=== PATIENT | female | born 1965 | race Caucasian/White ===

== ENCOUNTER 2024-06-12 11:25 | Outpatient (AMB) | payer BC, SELFPAY ==
--- NOTE | 2024-06-12 11:27 | HO.NEPHOV_ITS ---
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 Accompanied by: Self / Same As Patient Allergies No Known Allergies Allergy (Verified 06/12/24 11:31) Medication List - Last Reconciled 06/12/24 by James Ansari MD atorvastatin 20 mg PO DAILY bupropion HCl XL 150 mg PO DAILY celecoxib 200 mg PO DAILY citalopram 40 mg PO DAILY estradiol 1 mg PO DAILY gabapentin mg PO BID losartan 25 mg PO DAILY metoprolol succinate ER 25 mg PO DAILY nortriptyline 10 mg PO BID progesterone micronized 200 mg PO BEDTIME spironolactone 50 mg PO DAILY tizanidine 4 mg PO TID tizanidine 2 mg PO TID HPI Comments Details: Anabel churchill 58-year-old woman with a history of hypertension for almost 5 years. She has been on spironolactone 50 mg, metoprolol 25 mg, losartan 25 mg once a day. There has been fluctuations in her blood pressure. Apparently she has been on spironolactone for a longer period of time and this was initially prescribed for the treatment of acne. She had Holter monitoring done few years ago and metoprolol was started after the Holter monitoring. Against this background about a month ago she developed diarrhea and p.o. intake was poor. She developed acute kidney injury. While this episode happened she was on above medications along with Celebrex 200 mg once a day. She has been on Celebrex for several years and prior to that she was on several other NSAIDs for osteoarthritis. Once the episode of diarrhea resolved serum creatinine decreased from 2.0 down to 1.35 over the last several weeks. She has not changed any of her medications despite the advice of discontinuing Celebrex from her PCP. Other ongoing medical problems significant for multiple sclerosis. This is in remission. She follows with neurologist. She has a history of depression. She is on both Wellbutrin and citalopram 40 mg a day. She has been on this for a long time History of significant osteoarthritis she has been on NSAIDs for a long time. 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 History of neuropathy. She is on gabapentin 600 mg b.i.d. along with the nortriptyline. Again she has been on this for several years. She has 3 siblings no history of hypertension. Grandmother had end stage renal disease. No history of smoking cigarettes or alcohol abuse. She uses marijuana She is not on a salt restricted diet. In fact she uses plenty of pickle and sometimes drinks pickle juice Review of Systems Const Denies fever(s) and Denies weight loss Card Denies chest pain Resp Denies cough and Denies hemoptysis GI Denies abdominal pain, Denies diarrhea and Denies nausea Musc Denies back pain Neuro Denies focal weakness Physical Exam Vital Signs: Last Vital Signs Pulse 91 06/12/24 11:28 BP 140/98 H 06/12/24 11:28 Pulse Ox 95 06/12/24 11:28 Oxygen Delivery Method Room Air 06/12/24 11:28 BMI result Body Mass Index 33.8 Const General: comfortable; No acute distress Orientation/consciousness: patient oriented x3 Eyes General: appearance normal, both eyes and all related structures Visual Calix: normal visual calix by confrontation Neck Neck: Yes supple and Yes no JVD Resp Effort & Inspection: normal respiratory effort and respiratory effort not decreased Auscultation: rhonchi Cardio Palpation: no palpable S3 and no palpable S4 Heart sounds: no rubs GI Inspection: Yes normal to inspection Palpation (GI): Soft to palpation Percussion: Yes normal to percussion Auscultation: normal bowel sounds General: Yes no CVA tenderness Back/Spine/Pelvis Back: no CVA tenderness Skin General skin exam: no petechiae and no purpura Neuro General: patient oriented x3 and no focal motor deficits Extrem General: No clubbing and No edema Results Reviewed Results Reviewed: All labs labs reviewed. As of June 11 serum creatinine 1.35 serum electrolytes normal. All prior labs were reviewed Peak serum creatinine was 2.04 on May 14 Nephrology Results: No Data to Display Assessment & Plan Assessment & Plan (1) CKD (chronic kidney disease): Code(s): N18.9 - Chronic kidney disease, unspecified Category: Medical (2) HTN (hypertension): Code(s): I10 - Essential (primary) hypertension Category: Medical (3) Multiple sclerosis: Code(s): G35 - Multiple sclerosis Category: Medical (4) Osteoarthritis: Code(s): M19.90 - Unspecified osteoarthritis, unspecified site Category: Medical (5) Neuropathy: Code(s): G62.9 - Polyneuropathy, unspecified Category: Medical (6) History of depression: Code(s): Z86.59 - Personal history of other mental and behavioral disorders Category: Medical Plan 58-year-old woman with a history of hypertension has sustained acute kidney injury. Acute kidney injury is most likely due to hypoperfusion from the combination of losartan, spironolactone and Celebrex. She developed diarrhea leading to dehydration which could be the precipitating event. Once diarrhea resolved and her volume status has been optimized renal function is gradually improving. She probably has underlying chronic kidney disease and baseline is yet to be determined. Ideally she should not be on a combination of losartan spironolactone and Celebrex. This combination certainly could lead to hypoperfusion. Upon discussing with her she does not want to stop Celebrex due to the severity of osteoarthritis. Next best option would be to taper spironolactone. Other possibility would be to discontinue losartan. She is open to suggestion. Other possibilities including underlying obstructive uropathy, glomerular nephritis or interstitial disease seem unlikely but nevertheless we will rule that out. Overall she is on multiple medications and we should be able to taper and discontinue some of her medications. I have discussed this with her. Over the course of several weeks I will gradually taper gabapentin, nortriptyline, citalopram and Wellbutrin. We will taper 1 medication at a time. Recommendations Stay on low-sodium diet. Encouraged her to avoid pickle and pickle juice Decrease spironolactone by 50% down to 25 mg a day. Watch blood pressure over the next several weeks. If needed I will obtain a 24 hour ambulatory blood pressure monitoring which will guide us in altering her antihypertensive regimen. Taper and discontinue Celebrex if possible or use as needed. Encouraged her to increase p.o. fluid intake. Renal ultrasonogram to check renal echogenicity and to rule out hydronephrosis Routine urine studies including urine protein creatinine ratio. Repeat blood work ordered over the next 2 weeks to follow up on serum creatinine. Returned to the office after baseline workup is completed. Orders: Orders UA and rflx microscopic Today N18.9 - Chronic kidney disease, unspecified Comprehensive Met. Panel 2 Weeks N18.9 - Chronic kidney disease, unspecified renal BI Today N18.9 - Chronic kidney disease, unspecified Total Protein Urine Random Today N18.9 - Chronic kidney disease, unspecified Creatinine Urine Today N18.9 - Chronic kidney disease, unspecified Coding Level of Care Code New Pt Level 5 (63783) Diagnoses CKD (chronic kidney disease) N18.9 HTN (hypertension) I10 Multiple sclerosis G35 Osteoarthritis M19.90 Neuropathy G62.9 History of depression Z86.59
[2024-06-12 11:28] VITALS: BP 140/98; PULSE 91; O2SAT 95; BMI 33.8
[2024-06-12 12:07] VITALS: BP 150/90
== END 2024-06-12 12:06 | disposition home or self-care (01) ==
PROVIDERS: Visit Provider Internal Medicine Hypertension Specialist
DX: I12.9 Hypertensive chronic kidney disease with stage 1 through stage 4 chronic kidney disease, or unspecified chronic kidney disease (principal); N18.9 Chronic kidney disease, unspecified; G35 Multiple sclerosis; M19.90 Unspecified osteoarthritis, unspecified site; G62.9 Polyneuropathy, unspecified; Z86.59 Personal history of other mental and behavioral disorders
CPT/HCPCS: 99204

== ENCOUNTER → 2024-06-12 11:25 | Outpatient (BNVA) | payer BC, SELFPAY | PROVIDERS: Visit Provider Internal Medicine Hypertension Specialist ==

== ENCOUNTER 2024-06-12 12:11 | Outpatient (REF) | payer BC, SELFPAY ==
[2024-06-12 17:59] LABS: Appearance Urine Clear; Color Urine Yellow; Glucose Urine UA Negative (Negative); Leukocyte Esterase Urine Negative (Negative); Nitrite Urine Negative (Negative); PH 6.5 (5.0-9.0); Specific Gravity - Urine 1.015 (1.005-1.025); Urine Blood Negative (Negative); Urine Ketones Negative (Negative); Urine Protein Negative (Neg-Trace)
[2024-06-12 18:43] LABS: Total Protein Urine Random < 7 mg/dL (<12)
== END 2024-06-12 12:12 | disposition home or self-care (01) ==
LOC: HO.HKASLDS 12:11
PROVIDERS: Visit Provider Internal Medicine Hypertension Specialist
DX: N18.9 Chronic kidney disease, unspecified (principal)
CPT/HCPCS: 81003; 82570; 84156

== ENCOUNTER 2024-06-20 09:55 | Outpatient (REF) | payer BC, SELFPAY ==
--- NOTE | ~2024-06-20 | US_ITS ---
EXAMINATION: US RETROPERITONEAL LIMITED (RENAL ONLY) CLINICAL INFORMATION: Chronic kidney disease, unspecified. COMPARISON: None available. TECHNIQUE: Real-time imaging of the kidneys. Limited visualization due to bowel gas. FINDINGS: RIGHT KIDNEY: 10.0 x 4.2 x 4.6 cm (SAG x AP x TRV). No hydronephrosis. 0.5 cm midpole calculus. Renal cortical thickness is normal. Limited visualization. LEFT KIDNEY: 8.6 x 5.3 x 4.0 cm (SAG x AP x TRV). 0.7 cm upper pole calculus. No hydronephrosis. Renal cortical thickness is normal. Limited visualization. US/US renal BI IMPRESSION: Bilateral nonobstructive renal calculi. No hydronephrosis.
== END 2024-06-20 09:56 | disposition home or self-care (01) ==
LOC: HO.US 09:55
PROVIDERS: PCP Internal Medicine; Visit Provider Internal Medicine Hypertension Specialist
DX: N18.9 Chronic kidney disease, unspecified (principal)
CPT/HCPCS: 76775

== ENCOUNTER 2024-07-24 09:04 | Outpatient (AMB) | payer BC, SELFPAY ==
--- NOTE | 2024-07-24 09:02 | HO.NEPHOV_ITS ---
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 Accompanied by: Self / Same As Patient Allergies No Known Allergies Allergy (Verified 07/24/24 09:15) Medication List - Last Reconciled 07/24/24 by James Ansari MD atorvastatin 20 mg PO DAILY bupropion HCl XL 150 mg PO DAILY celecoxib 200 mg PO DAILY citalopram 40 mg PO DAILY estradiol 1 mg PO DAILY gabapentin mg PO DAILY losartan 25 mg PO DAILY metoprolol succinate ER 25 mg PO DAILY nortriptyline 10 mg PO DAILY progesterone micronized 200 mg PO BEDTIME spironolactone 25 mg PO DAILY tizanidine 4 mg PO TID tizanidine 2 mg PO TID HPI Comments Details: Anabel churchill 58-year-old woman with a history of hypertension for almost 5 years. She has been on spironolactone 50 mg, metoprolol 25 mg, losartan 25 mg once a day. There has been fluctuations in her blood pressure. Apparently she has been on spironolactone for a longer period of time and this was initially prescribed for the treatment of acne. She had Holter monitoring done few years ago and metoprolol was started after the Holter monitoring. Against this background about a month ago she developed diarrhea and p.o. intake was poor. She developed acute kidney injury. While this episode happened she was on above medications along with Celebrex 200 mg once a day. She has been on Celebrex for several years and prior to that she was on several other NSAIDs for osteoarthritis. Once the episode of diarrhea resolved serum creatinine decreased from 2.0 down to 1.35 over the last several weeks. She has not changed any of her medications despite the advice of discontinuing Celebrex from her PCP. Other ongoing medical problems significant for multiple sclerosis. This is in remission. She follows with neurologist. She has a history of depression. She is on both Wellbutrin and citalopram 40 mg a day. She has been on this for a long time History of significant osteoarthritis she has been on NSAIDs for a long time. 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 History of neuropathy. She is on gabapentin 600 mg b.i.d. along with the nortriptyline. Again she has been on this for several years. She has 3 siblings no history of hypertension. Grandmother had end stage renal disease. No history of smoking cigarettes or alcohol abuse. She uses marijuana She is not on a salt restricted diet. In fact she uses plenty of pickle and sometimes drinks pickle juice 07/24/24 She has cut back on Aldactone Still on Celebrex 200 mg Physical Exam Vital Signs: Last Vital Signs Pulse 70 07/24/24 09:13 BP 144/88 H 07/24/24 09:13 Pulse Ox 98 07/24/24 09:13 Oxygen Delivery Method Room Air 07/24/24 09:13 BMI result Body Mass Index 34.3 Const General: comfortable; No acute distress Orientation/consciousness: patient oriented x3 Eyes General: appearance normal, both eyes and all related structures Visual Calix: normal visual calix by confrontation Neck Neck: Yes supple and Yes no JVD Resp Effort & Inspection: normal respiratory effort and respiratory effort not decreased Auscultation: rhonchi Cardio Palpation: no palpable S3 and no palpable S4 Heart sounds: no rubs GI Inspection: Yes normal to inspection Palpation (GI): Soft to palpation Percussion: Yes normal to percussion Auscultation: normal bowel sounds General: Yes no CVA tenderness Back/Spine/Pelvis Back: no CVA tenderness Skin General skin exam: no petechiae and no purpura Neuro General: patient oriented x3 and no focal motor deficits Extrem General: No clubbing and No edema Results Reviewed Nephrology Results: Urine Protein Negative mg/dL (Neg-Trace) 06/12/24 Urine Creatinine 52.90 mg/dL 06/12/24 Renal US 06/20/24 Assessment & Plan Assessment & Plan (1) CKD (chronic kidney disease): Code(s): N18.9 - Chronic kidney disease, unspecified Category: Medical (2) HTN (hypertension): Code(s): I10 - Essential (primary) hypertension Category: Medical (3) Multiple sclerosis: Code(s): G35 - Multiple sclerosis Category: Medical (4) Osteoarthritis: Code(s): M19.90 - Unspecified osteoarthritis, unspecified site Category: Medical (5) Neuropathy: Code(s): G62.9 - Polyneuropathy, unspecified Category: Medical (6) History of depression: Code(s): Z86.59 - Personal history of other mental and behavioral disorders Category: Medical Plan 58-year-old woman with a history of hypertension has sustained acute kidney injury. Acute kidney injury is most likely due to hypoperfusion from the combination of losartan, spironolactone and Celebrex. She developed diarrhea leading to dehydration which could be the precipitating event. Once diarrhea resolved and her volume status has been optimized renal function is gradually improving. She probably has underlying chronic kidney disease and baseline is yet to be determined. Ideally she should not be on a combination of losartan spironolactone and Celebrex. This combination certainly could lead to hypoperfusion. Upon discussing with her she does not want to stop Celebrex due to the severity of osteoarthritis. Creatiinine is up to 2.4 - Due to hypoperfusion ; USG - no obstruction She is should cut back on Celebrex! Taper spironolactone. Other possibility would be to discontinue losartan. No evidence of glomerular nephritis or interstitial disease based on UA Overall she is on multiple medications and we should be able to taper and discontinue some of her medications. I have discussed this with her. Over the course of several weeks I will gradually taper gabapentin, nortriptyline, citalopram and Wellbutrin. Recommendations Stay on low-sodium diet. Encouraged her to avoid pickle and pickle juice spironolactone keep at 25 mg a day. Watch blood pressure . discontinue Celebrex if possible or use as needed. Encouraged her to increase p.o. fluid intake. Repeat blood work ordered over the next 2 weeks to follow up on serum creatinine. Orders: Orders Basic Metabolic Panel 6 Weeks N18.9 - Chronic kidney disease, unspecified Medications: Changed From celecoxib 200 mg PO DAILY To celecoxib 200 mg PO .qod Coding Level of Care Code Est Pt Level 4 (93086) Diagnoses CKD (chronic kidney disease) N18.9 HTN (hypertension) I10 Multiple sclerosis G35 Osteoarthritis M19.90 Neuropathy G62.9 History of depression Z86.59
[2024-07-24 09:13] VITALS: BP 144/88; PULSE 70; O2SAT 98; BMI 34.3
== END 2024-07-24 09:34 | disposition home or self-care (01) ==
PROVIDERS: Visit Provider Internal Medicine Hypertension Specialist
DX: I12.9 Hypertensive chronic kidney disease with stage 1 through stage 4 chronic kidney disease, or unspecified chronic kidney disease (principal); N18.9 Chronic kidney disease, unspecified; G35 Multiple sclerosis; M19.90 Unspecified osteoarthritis, unspecified site; G62.9 Polyneuropathy, unspecified; Z86.59 Personal history of other mental and behavioral disorders
CPT/HCPCS: 99214

== ENCOUNTER → 2024-07-24 09:04 | Outpatient (BNVA) | payer BC, SELFPAY | PROVIDERS: Visit Provider Internal Medicine Hypertension Specialist ==

== ENCOUNTER 2024-09-04 09:22 | Outpatient (AMB) | payer BC, SELFPAY ==
[2024-09-04 09:23] VITALS: BP 124/80; PULSE 77; O2SAT 96; BMI 33.7
--- NOTE | 2024-09-04 09:23 | HO.NEPHOV_ITS ---
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 Accompanied by: Spouse Allergies No Known Allergies Allergy (Verified 09/04/24 09:25) Medication List - Last Reconciled 09/04/24 by Stormy Ayala, DNP, GAME DESIGN INSTRUCTOR-BC atorvastatin 20 mg PO DAILY bupropion HCl XL 150 mg PO DAILY citalopram 40 mg PO DAILY estradiol 1 mg PO DAILY losartan 25 mg PO DAILY metoprolol succinate ER 25 mg PO DAILY modafinil 200 mg PO BID nortriptyline 10 mg PO DAILY progesterone micronized 200 mg PO BEDTIME spironolactone 25 mg PO DAILY tizanidine 4 mg PO TID tizanidine 2 mg PO TID HPI Comments Details: Anabel churchill 58-year-old woman with a history of hypertension for almost 5 years. In May 2024 she had an MADHAVI with rise in creatinine to 2.04 in the setting of diarrhea while taking losartan, spironolactone and celebrex (for arthritis). Her creatinine improved several weeks later after diarrhea resolved to 1.35, but continued to take celebrex until Jul 2024. she had been on NSAIDs for many years for osteoarthritis until recently. other medical history includes osteoarthritis, multiple sclerosis (in remission), neuropathy (on gabapentin and nortriptyline for years), depression. She has been taking metoprolol for a few years now after having a holter monitor done per her report. She has 3 siblings no history of hypertension. Grandmother had end stage renal disease. No history of smoking cigarettes or alcohol abuse. She uses marijuana She previously drank pickle juice and added lots of salt to her diet. Over the last few weeks she has been minimizing salt and avoiding pickle juice. She is taking losartan 25mg daily, metoprolol 25mg daily and spironolactone 25mg daily for blood pressure control. Today she states she is feeling well, other than her knee pain which has worsened since discontinuing celebrex. She is working on reducing salt though still adds salt to food when she cooks (just avoids adding more table salt at the table when she eats). She states her diet is not particularly healthy, reports she is [place] and loves the carbohydrates she eats frequently. She has not been able to exercise recently due to knee pain. She denies other new symptoms/concerns. Review of Systems Const Denies fatigue, Denies headache(s), Denies lethargy and Denies malaise ENT Denies headache(s) Card Denies chest pain, Denies lightheadedness, Denies dyspnea and Denies dyspnea on exertion Resp Denies dyspnea and Denies dyspnea on exertion GI Denies abdominal pain Denies hematuria, Denies difficulty voiding, Denies dysuria and Denies flank pain Musc Reports arthralgias (knees- osteoarthritis) Skin/Breast Denies rash Neuro Denies headache(s) Endo Denies fatigue Physical Exam Vital Signs: Last Vital Signs Pulse 77 09/04/24 09:23 Pulse Ox 96 09/04/24 09:23 Oxygen Delivery Method Room Air 09/04/24 09:23 BMI result Body Mass Index 33.7 Const General: healthy appearing, comfortable, no acute distress and alert Neck Neck: Yes no JVD Resp Effort & Inspection: normal respiratory effort Auscultation: clear to auscultation bilaterally Cardio Jugular venous distension: no JVD Rate: regular rate Rhythm: regular rhythm Heart sounds: S1 normal heart sound present and S2 normal heart sound present GI Palpation (GI): Soft to palpation and nontender General: Yes no CVA tenderness Back/Spine/Pelvis Back: no CVA tenderness Skin Rashes: no rashes Neuro General: moves all extremities Extrem General: No edema Results Reviewed Nephrology Results: Urine Protein Negative mg/dL (Neg-Trace) 06/12/24 Urine Creatinine 52.90 mg/dL 06/12/24 Renal US 06/20/24 Assessment & Plan Assessment & Plan (1) CKD (chronic kidney disease): Code(s): N18.9 - Chronic kidney disease, unspecified Category: Medical Qualifiers: Chronic kidney disease stage: stage 3 (moderate) Chronic kidney disease stage 3 subtype: stage 3b (GFR 30-44) Qualified Code(s): N18.32 - Chronic kidney disease, stage 3b (2) HTN (hypertension): Code(s): I10 - Essential (primary) hypertension Category: Medical Qualifiers: Hypertension type: primary hypertension Qualified Code(s): I10 - Essential (primary) hypertension (3) Multiple sclerosis: Code(s): G35 - Multiple sclerosis Category: Medical (4) Osteoarthritis: Code(s): M19.90 - Unspecified osteoarthritis, unspecified site Category: Medical Qualifiers: Osteoarthritis location: knee Osteoarthritis type: unspecified Laterality: unspecified laterality Qualified Code(s): M17.9 - Osteoarthritis of knee, unspecified (5) Neuropathy: Code(s): G62.9 - Polyneuropathy, unspecified Category: Medical (6) History of depression: Code(s): Z86.59 - Personal history of other mental and behavioral disorders Category: Medical Plan 58 year old women with a history of hypertension, sustained acute kidney injury from hypoperfusion. No evidence of GN or interstitial disease -UA bland. No obstruction. renal function has stabilized, likely new baseline. 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 Long discussion regarding importance of continuing to reduce salt intake- discussed avoiding adding salt to food while cooking whill be important for her kidney health and blood pressure. Discussed importance of weight loss for renal and overall health. Discussed importance of hydrating well, particularly while on her current medication regimen. She will continue to avoid NSAIDs. She will return in 2-3 months for follow up and work on recommendations above in the meant time. She will get blood work prior to next appt. Orders: Orders Basic Metabolic Panel 3 Months I10 - Essential (primary) hypertension, N18.30 - Chronic kidney disease, stage 3 unspecified, N18.9 - Chronic kidney disease, unspecified Coding Level of Care Code Est Pt Level 4 (21732) Diagnoses Stage 3b chronic kidney disease N18.32 Chronic kidney disease stage: stage 3 (moderate) Chronic kidney disease stage 3 subtype: stage 3b (GFR 30-44) Primary hypertension I10 Hypertension type: primary hypertension Multiple sclerosis G35 Osteoarthritis of knee, unspecified laterality, unspecified osteoarthritis type M17.9 Osteoarthritis location: knee Osteoarthritis type: unspecified Laterality: unspecified laterality Neuropathy G62.9 History of depression Z86.59
== END 2024-09-04 09:54 | disposition home or self-care (01) ==
PROVIDERS: PCP Internal Medicine; Visit Provider Internal Medicine Hypertension Specialist
DX: N18.32 Chronic kidney disease, stage 3b (principal); I10 Essential (primary) hypertension; G35 Multiple sclerosis; M17.9 Osteoarthritis of knee, unspecified; G62.9 Polyneuropathy, unspecified; Z86.59 Personal history of other mental and behavioral disorders
CPT/HCPCS: 99214

== ENCOUNTER → 2024-09-04 09:22 | Outpatient (BNVA) | payer BC, SELFPAY | PROVIDERS: PCP Internal Medicine; Visit Provider Internal Medicine Hypertension Specialist | DX: N18.9 Chronic kidney disease, unspecified (principal); I10 Essential (primary) hypertension; G35 Multiple sclerosis; M19.90 Unspecified osteoarthritis, unspecified site; G62.9 Polyneuropathy, unspecified; Z86.59 Personal history of other mental and behavioral disorders ==

== ENCOUNTER 2024-12-04 09:13 | Outpatient (AMB) | payer BC, SELFPAY ==
[2024-12-04 09:19] VITALS: BP 68/50; BMI 34.0
--- NOTE | 2024-12-04 09:19 | HO.NEPHOV ---
Vital Signs 12/04/24 09:19 Height 5 ft 7 in Weight 217 lb BMI 34.0 BP 68/50 L Blood Pressure Location Lt brachial Position Sitting Intake Visit Reasons: 3mon follow up/ LVM Clinical Data Research Required: No Accompanied by: Self / Same As Patient Allergies No Known Allergies Allergy (Verified 12/04/24 09:21) Medication List - Last Reconciled 12/04/24 by James Ansari MD atorvastatin 20 mg PO DAILY bupropion HCl XL 150 mg PO DAILY citalopram 40 mg PO DAILY estradiol 1 mg PO DAILY losartan 25 mg PO DAILY metoprolol succinate ER 25 mg PO DAILY modafinil 200 mg PO BID nortriptyline 10 mg PO DAILY progesterone micronized 200 mg PO BEDTIME tizanidine 4 mg PO TID tizanidine 2 mg PO TID HPI Comments Details: Anabel churchill 58-year-old woman with a history of hypertension for almost 5 years. She has been on spironolactone 50 mg, metoprolol 25 mg, losartan 25 mg once a day. There has been fluctuations in her blood pressure. Apparently she has been on spironolactone for a longer period of time and this was initially prescribed for the treatment of acne. She had Holter monitoring done few years ago and metoprolol was started after the Holter monitoring. Against this background about a month ago she developed diarrhea and p.o. intake was poor. She developed acute kidney injury. While this episode happened she was on above medications along with Celebrex 200 mg once a day. She has been on Celebrex for several years and prior to that she was on several other NSAIDs for osteoarthritis. Once the episode of diarrhea resolved serum creatinine decreased from 2.0 down to 1.35 over the last several weeks. She has not changed any of her medications despite the advice of discontinuing Celebrex from her PCP. Other ongoing medical problems significant for multiple sclerosis. This is in remission. She follows with neurologist. She has a history of depression. She is on both Wellbutrin and citalopram 40 mg a day. She has been on this for a long time History of significant osteoarthritis she has been on NSAIDs for a long time. 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 History of neuropathy. She is on gabapentin 600 mg b.i.d. along with the nortriptyline. Again she has been on this for several years. She has 3 siblings no history of hypertension. Grandmother had end stage renal disease. No history of smoking cigarettes or alcohol abuse. She uses marijuana She is not on a salt restricted diet. In fact she uses plenty of pickle and sometimes drinks pickle juice 07/24/24 She has cut back on Aldactone Still on Celebrex 200 mg 12/04/24 BP has been low Feels light headed Off NSAIDS Physical Exam Vital Signs: Last Vital Signs BP 68/50 L 12/04/24 09:19 BMI result Body Mass Index 34.0 Comfortable Neck supple no JVD. Lungs entry equal no rales. Heart S1-S2 heard no gallop or rub. Abdomen soft nontender. Neuro alert awake oriented. No asterixis. Extremities no edema. Results Reviewed Nephrology Results: Urine Protein Negative mg/dL (Neg-Trace) 06/12/24 Urine Creatinine 52.90 mg/dL 06/12/24 Renal US 06/20/24 Assessment & Plan Assessment & Plan (1) CKD (chronic kidney disease): Code(s): N18.9 - Chronic kidney disease, unspecified Category: Medical Qualifiers: Chronic kidney disease stage: stage 3 (moderate) Chronic kidney disease stage 3 subtype: stage 3b (GFR 30-44) Qualified Code(s): N18.32 - Chronic kidney disease, stage 3b (2) HTN (hypertension): Code(s): I10 - Essential (primary) hypertension Category: Medical Qualifiers: Hypertension type: primary hypertension Qualified Code(s): I10 - Essential (primary) hypertension (3) Multiple sclerosis: Code(s): G35 - Multiple sclerosis Category: Medical (4) Osteoarthritis: Code(s): M19.90 - Unspecified osteoarthritis, unspecified site Category: Medical Qualifiers: Laterality: unspecified laterality Osteoarthritis location: knee Osteoarthritis type: unspecified Qualified Code(s): M17.9 - Osteoarthritis of knee, unspecified (5) Neuropathy: Code(s): G62.9 - Polyneuropathy, unspecified Category: Medical (6) History of depression: Code(s): Z86.59 - Personal history of other mental and behavioral disorders Category: Medical Plan 58-year-old woman with a history of hypertension has sustained acute kidney injury. Acute kidney injury is most likely due to hypoperfusion from the combination of losartan, spironolactone and Celebrex. She developed diarrhea leading to dehydration which could be the precipitating event. Once diarrhea resolved and her volume status has been optimized renal function is gradually improving. She probably has underlying chronic kidney disease and baseline is yet to be determined. Ideally she should not be on a combination of losartan spironolactone and Celebrex. This combination certainly could lead to hypoperfusion. Upon discussing with her she does not want to stop Celebrex due to the severity of osteoarthritis. Creatiinine is up to 2.4 - Due to hypoperfusion ; USG - no obstruction She is should cut back on Celebrex! Taper spironolactone. Other possibility would be to discontinue losartan. No evidence of glomerular nephritis or interstitial disease based on UA Overall she is on multiple medications and we should be able to taper and discontinue some of her medications. I have discussed this with her. Over the course of several weeks I will gradually taper gabapentin, nortriptyline, citalopram and Wellbutrin. 12/04/24; BP is rather low Recommendations Stay on low-sodium diet. Encouraged her to avoid pickle and pickle juice STOP spironolactone 25 mg a day due to LOW BP Watch blood pressure . Continue to hold Celebrex Encouraged her to increase p.o. fluid intake. Orders: Orders Complete Blood Count no Diff 4 Months N18.32 - Chronic kidney disease, stage 3b Basic Metabolic Panel 4 Months N18.32 - Chronic kidney disease, stage 3b Coding Level of Care Code Est Pt Level 4 (13853) Diagnoses Stage 3b chronic kidney disease N18.32 Chronic kidney disease stage: stage 3 (moderate) Chronic kidney disease stage 3 subtype: stage 3b (GFR 30-44) Primary hypertension I10 Hypertension type: primary hypertension Multiple sclerosis G35 Osteoarthritis of knee, unspecified laterality, unspecified osteoarthritis type M17.9 Laterality: unspecified laterality Osteoarthritis location: knee Osteoarthritis type: unspecified Neuropathy G62.9 History of depression Z86.59
--- OUTSIDE RECORDS SUMMARY | 2024-12-04 09:40 | XMS_ITS | Clinical Summary ---
Author Organization [facility] Address [address] [place] [address] Care Team Providers Care Winch Driver Name Role Phone [email or web address] cuevas Primary Care Provider [phone] Allergies No known active allergies Medications Medication Sig Dispensed Refills Start Date End Date Status nortriptyline (PAMELOR) 10 MG capsule Take 2 capsules (20 mg total) by mouth every night at bedtime. 0 Active Levonorgest-Eth Estrad 0.15-0.03 &0.01 MG TABS Take by mouth daily. 0 Active buPROPion (WELLBUTRIN XL) 150 MG 24 hr tablet Take 1 tablet (150 mg total) by mouth daily. 0 Active citalopram (CeleXA) 40 MG tablet Take 1 tablet (40 mg total) by mouth daily. 0 Active tiZANidine (ZANAFLEX) 6 MG capsule Take 1 capsule (6 mg total) by mouth 3 (three) times a day. 0 Active celecoxib (CeleBREX) 200 MG capsule Take 1 capsule (200 mg total) by mouth daily. 0 Active gabapentin (NEURONTIN) 600 MG tablet Take 1 tablet (600 mg total) by mouth 2 (two) times a day. 0 Active estradiol (ESTRACE) 1 MG tablet estradiol 1 mg tablet TAKE 1 TABLET BY MOUTH EVERY DAY 0 Active finasteride (PROSCAR) 5 MG tablet Take 0.5 tablets (2.5 mg total) by mouth daily. 0 05/28/2020 Active progesterone (PROMETRIUM) capsule 200 mg TAKE 1 CAPSULE BY MOUTH EVERYDAY AT BEDTIME 0 03/26/2020 Active atorvastatin (LIPITOR) tablet 20 mg Take 1 tablet (20 mg total) by mouth daily. for 30 days 0 04/18/2023 Active modafinil (PROVIGIL) 200 MG tablet TAKE 1 TABLET BY MOUTH UP TO TWICE DAILY 180 tablet 5 04/04/2024 Active Active Problems Problem Noted Date Diagnosed Date HTN (hypertension) 06/12/2020 Depression 06/12/2020 Family History Medical History Relation Name Comments Multiple sclerosis Great Aunt 1 mat great maternal aun t Multiple sclerosis Great Aunt 2 maternal great pat. au nt Hypertension Mother Relation Name Status Comments Great Aunt 1 mat great maternal aunt Great Aunt 2 maternal great pat. aunt Mother Social History Tobacco Use Types Packs/Day Years Used Date Smoking Tobacco: Former Cigarettes Q uit: 1999 Smokeless Tobacco: Never Tobacco Cessation:Counseling Given: Not Answered Alcohol Use Standard Drinks/Week Comments Yes 0 (1 standard drink = 0.6 oz pur e alcohol) Sex and Gender Information Value Date Recorded Sex Assigned at Female 02/23/2021 10:42 AM EDT Gender Identity Not on file Sexual Orientation Not on file Job Start Date Occupation Industry Not on file Not on file Not on file Last Filed Vital Signs Vital Sign Reading Time Taken Comments Blood Pressure 96/64 06/03/2024 9:23 AM EDT Pulse 69 06/03/2024 9:23 AM EDT Temperature 36.2 ??C (97.2 ??F) 06/03/2024 9:23 AM ED T Respiratory Rate 18 11/29/2023 11:2 7 AM EST Oxygen Saturation 95% 06/03/2024 9:23 AM EDT Inhaled Oxygen Concentration - - Weight 97.9 kg (215 lb 12.8 oz) 06/03/2024 9:23 AM EDT Height 170.2 cm (5' 7 ) 06/03/2024 9:23 AM EDT Body Mass Index 33.8 06/03/2024 9:23 AM EDT Plan of Treatment Health Maintenance Due Date Last Done Comments Hepatitis B Vaccines (1 of 3 - 3-dose series) 1965 Hepatitis C Screening 1965 COVID-19 Vaccine (#1) 04/17/1966 Depression Screening 1977 BMI Counseling 1983 Preventative Health Evaluation 1983 Cervical Cancer Screening (Pap Smear) 1986 Colon Cancer Screening (Colonoscopy) 2010 Breast Cancer Screening (Mammogram) 2015 Shingrix-Zoster Vaccine (1 o f 2) 2015 DTap / Tdap / Td (2 - Td or Tdap) 11/30/2022 11/30/2012 Influenza Vaccine (#1) 2024 , 09/24/2020, 08/13/2019 Pneumococcal Vaccine Aged Out No long er eligible based on patient's age to complete this topic RSV Ped < 20 months Aged Out No longe r eligible based on patient's age to complete this topic Care Teams Winch Driver Relationship Specialty Start Date End Date Wiliam Ching DO [address] [place] [address] [address] [place] [address] PCP - General Internal Medicine 09/14/18
--- OUTSIDE RECORDS SUMMARY | 2024-12-04 09:40 | XMS_ITS | Clinical Summary ---
Author Organization 175 [facility] Address [address] [place] [address] Phone Care Team Providers Care Flame Brazing Machine Operator Name Role Phone Wiliam Maravilla DO Primary Care Provider [phone] Allergies No known active allergies Medications Medication Sig Dispensed Refills Start Date End Date Status amLODIPine (NORVASC) 5 mg tablet Take 2 tablets (10 mg total) by mouth 1 (one) time each day. Active atorvastatin (LIPITOR) 20 mg tablet Take 1 tablet (20 mg total) by mouth 1 (one) time each day. 04/18/2023 Active buPROPion XL (WELLBUTRIN XL) 150 mg 24 hr tablet Take 1 tablet (150 mg total) by mouth. Active celecoxib (CeleBREX) 200 mg capsule Take 1 capsule (200 mg total) by mouth 1 (one) time each day. Active citalopram (CeleXA) 40 mg tablet Take 1 tablet (40 mg total) by mouth 1 (one) time each day. Active estradioL (ESTRACE) 1 mg tablet estradiol 1 mg tablet TAKE 1 TABLET BY MOUTH EVERY DAY Active finasteride (PROSCAR) 5 mg tablet Take 2.5 mg by mouth. 05/28/2020 Active gabapentin (NEURONTIN) 600 mg tablet Take 1 tablet (600 mg total) by mouth 2 (two) times a day. Active L norgest/e.estradio L-e.estrad (SEASONIQUE) 0.15 mg-30 mcg (84)/10 mcg (7) per tablet Take by mouth 1 (one) time each day. Active nortriptyline (PAMELOR) 10 mg capsule Take 2 capsules (20 mg total) by mouth. Active progesterone (PROMETRIUM) 200 mg capsule Take 1 capsule (200 mg total) by mouth. Active tiZANidine (ZANAFLEX) 6 mg capsule Take 1 capsule (6 mg total) by mouth. Active semaglutide (WEGOVY) 0.25 mg/0.5 mL injection pen Inject 0.25 mg into the skin once a week for 4 doses. - Subcutaneous Active azelaic acid (FINACEA) 15 % gel Apply bid Active spironolactone (ALDACTONE) 100 mg tablet TAKE 1 TABLET DAILY Activ e AMLODIPINE-ATORVAS TATIN ORAL Take by mouth. - Oral Active nortriptyline HCl (NORTRIPTYLINE ORAL) Take 1 Tab by mouth 2 times daily. Active celecoxib (CELEBREX ORAL) Take 1 Tab by mouth daily. Active modafiniL (PROVIGIL) 200 mg tabletIndications: Multiple sclerosis (CMS/HCC) Take 1 tablet (200 mg total) by mouth 1 (one) time each day. Max Daily Amount: 200 mg 30 each 5 10/30/2024 04/28/2025 Active Active Problems Problem Noted Date Diagnosed Date Class 2 obesity with body ma ss index (BMI) of 35.0 to 35.9 in adult 10/02/2024 Lipoma 01/08/2024 HTN (hypertension) 06/12/2020 Arthritis 12/28/2017 Depression 12/28/2017 Multiple sclerosis 12/28/2017 Encounters Date Type Department Care Team Description 10/31/2024 1:15 PM EST Office Visit Bariatric Surgery - [place] [facility] [address] [place] [phone] Dago Girard MD Class 2 severe obesity due to excess calories with serious comorbidity and body mass index (BMI) of 36.0 to 36.9 in adult (CMS/HCC) (Primary Dx); Other specified disorders of carbohydrate metabolism (CMS/HCC) 10/04/2024 11:00 AM EST Office Visit [facility] for [place] - [place] [address] [facility] [address] [place] [phone] Estefany Block PA Multiple sclerosis (CMS/HCC) (Primary Dx) 10/02/2024 12:30 PM EST Telemedicine Bariatric Surgery - [address] [place] [address] Class 2 obesity with body mass index (BMI) of 35.0 to 35.9 in adult, unspecified obesity type, unspecified whether serious comorbidity present (Primary Dx) from Last 3 Months Surgical History Surgery Date Site/Laterality Comments EAR RECONSTRUCTION PROCEDURE:EAR RECONSTRUCTION BUNIONECTOMY PROCEDURE:BUNIONECTOMY EXPLORATORY LAPAROTOMY W/ ISATU WEL RESECTION PROCEDURE:EXPLORATORY LAPAROTOMY W/ BOWEL RESECTION HERNIA REPAIR PROCEDURE:HERNIA REPAIR KNEE CARTILAGE SURGERY Left PROCEDURE:KNEE CARTILAGE SURGERY Medical History Medical History Date Comments Hypertension DX:Hypertension Depression DX:Depression MS (multiple sclerosis) (CMS/HCC) DX:MS (multiple sclerosis) (HCC) Arthritis DX:Arthritis Bursitis DX:Bursitis Family History Medical History Relation Name Comments Multiple sclerosis Great Aunt 1 mat great maternal aun t Multiple sclerosis Great Aunt 2 maternal great pat. au nt Hypertension Mother Relation Name Status Comments Great Aunt 1 mat great maternal aunt Great Aunt 2 maternal great pat. aunt Mother Social History Tobacco Use Types Packs/Day Years Used Date Smoking Tobacco: Former Cigarettes Q uit: 11/13/1999 Smokeless Tobacco: Never Tobacco Cessation:Counseling Given: Not Answered Alcohol Use Standard Drinks/Week Comments Yes 0 (1 standard drink = 0.6 oz pur e alcohol) Sex and Gender Information Value Date Recorded Sex Assigned at Not on file Gender Identity Not on file Sexual Orientation Not on file Job Start Date Occupation Industry Not on file Not on file Not on file Obstetrics History Last Filed Vital Signs Vital Sign Reading Time Taken Comments Blood Pressure 153/90 10/31/2024 1:24 PM EST Pulse 74 10/31/2024 1:24 PM EST Temperature 36.2 ??C (97.2 ??F) 10/31/2024 1:24 PM ES T Respiratory Rate - - Oxygen Saturation 98% 10/04/2024 11:15 AM EST Inhaled Oxygen Concentration - - Weight 97.1 kg (214 lb) 10/31/2024 1:24 PM EST Height 162.6 cm (5' 4 ) 10/31/2024 1:24 PM EST Body Mass Index 36.73 10/31/2024 1:24 PM EST Plan of Treatment Upcoming Encounters Date Type Department Care Team (Late st Contact Info) Description 12/04/2024 12:30 PM EST Telemedicine Bariatric Surgery - [place] [address] [facility] [address] [place] [address] 175 [facility] [address] [place], [place] [id number] 03/31/2025 10:00 AM EDT Office Visit [facility] for [place] - [place] [address] [place] [address] Lazaro Moore MD 175 [facility] [address] [place] [phone] Health Maintenance Due Date Last Done Comments DTaP,Tdap,and Td Vaccines (1 - Tdap) 1984 Hepatitis B Vaccines (1 of 3 - 19+ 3-dose series) 1984 Cervical Cancer Screening: Pap Smear 1986 Zoster Vaccines (1 of 2) 2015 Depression Screening 10/22/2022 HIV Screening 10/22/2022 Hepatitis C Screening 10/22/2022 Medicare Annual Wellness Visit 10/22/2022 Social Influencers of Health Screening 10/22/2022 Hypertension/CHF/CAD Annual BMP Blood Test 11/10/2022 COVID-19 Vaccine ( season) 2024 Influenza Vaccine (#1) 2024 , 10/01/2021, 08/25/2021, Additional history exists Colorectal Cancer Screening: FIT-DNA (Cologuard) 09/02/2025 09/02/2022, 09/02/2022, 09/02/2022 Breast Cancer Screening 08/13/2026 08/13/20 24, 02/08/2023, 11/08/2021, Additional history exists Cholesterol Screening (Lipid Panel) 10/31/2029 10/31/2024 RSV Immunization Patients 60+ Years Old (1 - 1-dose 75+ series) 2040 HIB Vaccines Aged Out No longer eligi ble based on patient's age to complete this topic HPV Vaccines Aged Out No longer eligi ble based on patient's age to complete this topic Hepatitis A Vaccines Aged Out No long er eligible based on patient's age to complete this topic IPV Vaccines Aged Out No longer eligi ble based on patient's age to complete this topic MMR Vaccines Aged Out No longer eligi ble based on patient's age to complete this topic Meningococcal ACWY Vaccine Aged Out N o longer eligible based on patient's age to complete this topic Pneumococcal Vaccine: Pediatrics (0 to 5 Years) and At-Risk Patients (6 to 64 Years) Aged Out No longer eligible based on patient's age to complete this topic RSV Immunization Patients Under 20 months Aged Out No longer eligible based on patient's age to complete this topic Varicella Vaccines Aged Out No longer eligible based on patient's age to complete this topic Procedures Procedure Name Priority Date/Time Associated Diagnosis Comments ALANINE AMINOTRANSFERASE Routine 024 1:48 PM EST Class 2 severe obesity due to excess calories with serious comorbidity and body mass index (BMI) of 36.0 to 36.9 in adult ([facility]) LIPID PANEL WITH REFLEX TO DIRECT LDL Routine 10/31/2024 1:48 PM EST Class 2 severe obesity due to excess calories with serious comorbidity and body mass index (BMI) of 36.0 to 36.9 in adult ([facility]) HEMOGLOBIN A1C Routine 10/31/2024 1:48 PM EST Class 2 severe obesity due to excess calories with serious comorbidity and body mass index (BMI) of 36.0 to 36.9 in adult ([facility]) Other specified disorders of carbohydrate metabolism ([facility]) [facility] SCREENING DIGITAL Routine 08/13/2024 1:16 PM EDT Encounter for screening mammogram for malignant neoplasm of breast HM FIT-DNA Routine 09/02/2022 from Last 3 Months or Most Recently Relevant to Health Maintenance Results * (ABNORMAL) Lipid panel with reflex to direct LDL (10/31/2024 1:48 PM EST) Cholesterol 192 0 - 200 mg/dL LAB CHEMISTRY METHOD 10/31/2024 6:33 PM [facility] Triglycerides 192(H) 0 - 150 mg/dL LAB CHEMISTRY METHOD 10/31/2024 6:33 PM [facility] HDL 101 >=40 mg/dL LAB CHEMISTRY METHOD 10/31/2024 6:33 PM [facility] LDL Calculated 53 0 - 100 mg/dL LAB CHEMISTRY METHOD 10/31/2024 6:33 PM [facility] VLDL Cholesterol Reji 38.4 mg/dL LAB CHEMISTRY METHOD 10/31/2024 6:33 PM [facility] Non HDL Chol. (LDL+VLDL) 91 <145 mg/dL LAB CHEMISTRY METHOD 10/31/2024 6:33 PM [facility] Chol/HDL Ratio 1.9 0.0 - 4.4 LAB CHEMISTRY METHOD 10/31/2024 6:33 PM [facility] Blood Venous blood specimen / Unknown Venipuncture / Unknown 10/31/2024 1:48 PM EST 10/31/2024 1:48 PM EST Dago Girard MD LAB BLOOD ORDERABLES [facility] [address] [place] [address], [place] [phone] * Alanine aminotransferase (10/31/2024 1:48 PM EST) ALT (SGPT) 26 10 - 60 unit/L LAB CHEMISTRY METHOD 10/31/2024 6:31 PM EST [facility] Blood Venous blood specimen / Unknown Venipuncture / Unknown 10/31/2024 1:48 PM EST 10/31/2024 1:48 PM EST Dago Girard MD LAB BLOOD ORDERABLES [facility] [address] [place] [address], [place] [phone] * Hemoglobin A1c (10/31/2024 1:48 PM EST) Hemoglobin A1C 5.6 <6.5 % LAB CHEMISTRY METHOD 10/31/2024 8:59 PM EST [facility] Mean Bld Glu Estim. 114 mg/dL LAB CHEMISTRY METHOD 10/31/2024 8:59 PM EST [facility] Blood Venous blood specimen / Unknown Venipuncture / Unknown 10/31/2024 1:48 PM EST 10/31/2024 1:48 PM EST Dago Girard MD LAB BLOOD ORDERABLES [facility] [address] [place] [address], * GARRISON SCREENING DIGITAL (08/13/2024 1:16 PM EDT) Anatomical Region Laterality Modality Mammography 08/12/2024 1:05 PM EDT Narrative 08/13/2024 1:16 PM EDT [facility] Diagnostic Imaging Department [address] [place] [address] Patient: ??NOAM TURPIN ?/Age/Sex: 1965 - 58 - F Unit#: ??[id number] ? Location/Status: ??SPDIMAM/REG CLI ? Mnemonic/Ordering Site: ??DIGSC/SPMAM Ordering Physician: ??WILIAM MARAVILLA MD [facility] Screening Digital - 08/12/24 - 1322 Report Status:Signed EXAM: [facility] Screening Digital EXAM DATE AND TIME: 08/12/2024 1:23 PM HISTORY: ??Screening. COMPARISON: ??02/07/23, 11/15/21, 11/08/21 TECHNIQUE: Bilateral digital breast tomosynthesis was performed in the CC and MLO projections. Computer aided detection with [employer] 3D 3.1 was employed. TISSUE DENSITY: b. There are scattered areas of fibroglandular density. FINDINGS: No suspicious masses, grouped microcalcifications, or areas of architectural distortion are seen. The skin and vascularity are unremarkable. IMPRESSION: Stable mammographic appearance of the breasts. ??No evidence of malignancy is seen. A negative mammogram in the presence of a clinically suspicious palpable abnormality does not preclude the possibility of malignancy or alter the indications for biopsy. BI-RADS: ??Category 1: Negative RECOMMENDATION(S): 1: Routine screening mammogram BILATERAL in 1 year. Mammogram performed at [facility] [place] [address] Dictating Physician: ??TAMY TORRES MD Electronically Signed by: ??TAMY TORRES MD Dic Date/Time: ??08/13/24 1316 Sign date/Time: ??08/13/24 1316 Procedure Note Tamy Torres MD - 09/10/2024 [facility] Diagnostic Imaging Department [address] [place] [address] Patient: NOAM TURPIN/Age/Sex: 1965 - 58 - F Unit#: [id number] Location/Status: SPDIMAM/REG CLI Mnemonic/Ordering Site: [facility] Ordering Physician: WILIAM MARAVILLA MD [facility] Screening Digital - 08/12/24 - 1322 Report Status:Signed EXAM: [facility] Screening Digital EXAM DATE AND TIME: 08/12/2024 1:23 PM HISTORY: Screening. COMPARISON: 02/07/23, 11/15/21, 11/08/21 TECHNIQUE: Bilateral digital breast tomosynthesis was performed in the CCand MLO projections. Computer aided detection with [employer] 3D 3.1was employed. TISSUE DENSITY: b. There are scattered areas of fibroglandular density. FINDINGS: No suspicious masses, grouped microcalcifications, or areas ofarchitectural distortion are seen. The skin and vascularity are unremarkable. IMPRESSION: Stable mammographic appearance of the breasts. No evidence of malignancyis seen. A negative mammogram in the presence of a clinically suspicious palpable abnormality does not preclude the possibility of malignancy or alter the indications for biopsy. BI-RADS: Category 1: Negative RECOMMENDATION(S): 1: Routine screening mammogram BILATERAL in 1 year. Mammogram performed at [facility] [place] [address] Dictating Physician: TAMY TORRES MD Electronically Signed by: TAMY TORRES MD Dic Date/Time: 08/13/24 1316 Sign date/Time: 08/13/24 1316 Wiliam Maravilla DO [facility] BI PROCEDURES * FIT-DNA (Cologuard) (09/02/2022) Pathologist [facility] Colorectal Cancer Screening: FIT-DNA (Cologuard) abstracted ,normal Historical Provider MD DARREN Velasco from Last 3 Months or Most Recently Relevant to Health Maintenance Care Teams Flame Brazing Machine Operator Relationship Specialty Start Date End Date Wiliam Maravilla DO [address] [place] [phone] PCP - General 01/27/09
--- OUTSIDE RECORDS SUMMARY | 2024-12-04 09:40 | XMS_ITS | Data Portability ---
Author Organization [place] [facility],, MARY FAY MD Address [address] [address] Care Team Providers Care Farm Worker Name Role Phone TAIWO JM Primary Care Provider Assessment No assessment recorded. Plan of Treatment Reminders Order Date Submit Date Provider Last Modified By Organization Details Last Modified Time Details Appointments None recorded. Lab pap test, thinprep, cervical 2018 019 [email or web address] [facility], Cytopathology Service, [address] [place] [address], [address], 9 07:47:56 fecal occult blood, stool 2018 019 [email or web address] In-Office Order, Internal Use Only DO Not Attach Compendium DO Not Attach Compendium, Do Not Delete/merge, [id number] 9 07:47:56 pap test, thinprep, cervical 2021 022 [facility], Cytopathology Service, [address] [place], [address], 2 07:56:07 cytology report, thin prep, smear or scraping, cervical or vaginal 2023 024 GUSTINE [facility], [facility] [place], [address], 4 12:06:49 Referral None recorded. Procedures None recorded. Surgeries None recorded. Imaging MAMMO, screening , digital, bilateral 2018 [facility]19 [facility] [address] [place], [address], 0 07:50:52 MAMMO, screening , digital, bilateral [address] [facility] (Mammography), [address] [place], [address], 4 07:34:13 bone density 2021 022 [facility] (Ultrasound), [address] [place], [address], 4 07:30:16 MAMMO, screening , digital, bilateral - Breast Aspiratio n and/or Biopsy if needed 2023 024 [facility] Orders, [address], [address], [place], [address], 4 13:17:05 bone density 2023 024 [facility] Orders, [address], [address], [place], [address], 4 13:17:05 Medication Orders estradiol 0.01% (0.1 mg/gram) vaginal cream 2018 019 [facility], [address] [place] [address], [address], 3 09:16:59 estradiol 1 mg tablet 2020 021 [facility], [address] [place] [address], [address], 1 11:15:37 progester one micronize d 200 mg capsule 2020 021 [facility], [address] [place] [address], [address], 1 11:15:37 estradiol 0.01% (0.1 mg/gram) vaginal cream 2021 022 [facility], [address] [place] [address], [address], 3 09:16:59 estradiol 1 mg tablet 2021 022 ABI [facility], [address] [place] [address], [address], 2 12:25:02 progester one micronize d 200 mg capsule 2021 022 ABI [facility], [address] [place] [address], [address], 2 12:25:04 estradiol 1 mg tablet 2022 023 [facility]/Pharmacy #[id number], [address] [place], [address], 3 09:27:05 progester one micronize d 200 mg capsule 2022 023 [email or web address] 1 [facility]/Pharmacy #[id number], [address] [place], [address], 3 12:06:13 progester one micronize d 200 mg capsule 2023 024 [facility]/Pharmacy #[id number], [address] [place], [address], 4 11:11:43 estradiol 1 mg tablet 2023 024 [facility]/Pharmacy #[id number], [address] [place], [address], 4 11:11:43 Patient TargetsNo targets recorded. Patient Instructions Encounter Date Encounter Id Patient Instructions Last Modified By Organization Details Last Modified Time 09/26/2019 [id number] atrophic vaginit is: care instructions alyssa Not available 09/26/2019 11:08:11 She is here for annual exam, started HRT 3 to 4 weeks ago, she notes that her hot flashes are mouch improved and she is sleeping better. I feel better than I have in years! Very little to no MS symptoms at this time. Note from 08/29/19: She is here as a new patient for consult about menopause. She has not had a menses age 48. She was initially put on a progestin only control pill many years ago for control of menorrhagia. Her had a vasectomy in 1984. She is on disability for MS. She works as a pro shop attendant. She notes a few year history of persistent hot flashes, night sweats, insomnia in the middle of the night, mood instability, vaginal dryness, dyspareunia, increased bladder frequency and urgency. I just don't know what's MS and what's menopause she notes. The issues of menopause were discussed at length. She appears to be doing well on the HRT and elects to continue. She would like to add in the E2 cream to try to help with the vaginal dryness and severe dyspareunia. On exam: there is an 8 mm firm mass inner left introitus, may be a small lipoma under skin, she notes has been present unchanged for years She had another left buttocks lipoma removed in a different location years ago. She is advised to get 1500 mg of calcium daily into her diet and supplements combined. We discussed the benefits of adequate vitamin D supplementation to at least 400 units daily, daily aerobic exercise of 30 minutes, and stress reduction. Monthly self breast exam was taught, and stressed, and is advised to call if she discovers any new mass in the breast. Seat belt use for herself and passengers advised. The significant health benefits of becoming and remaining fit, with an optimal BMI, were discussed. We discussed the potential reduction in chronic discomfort, the diminished risks of hypertension, diabetes, and heart disease with the proper weight management, and improved mobility as she ages. Strategies to reach and maintain her target weight were discussed in detail. We discussed the avoidance of empty calories, the benefit of increasing her protein intake in the morning and diminishing her carbohydrate intake in the evening. A formalized dietary program was discussed, such as Weight Watchers. We discussed the use of the BMI calculator in following her progress. We discussed having her continue to take hormone replacement therapy. We discussed the need to take a progestin if a uterus is present, and the rationale behind that. We discussed the stated risks of one in 10,000 of development of a blood clot/DVT/PE that could be life threatening. We discussed the Women's Health Initiative study and the findings. We discused the PEPPI study as well. She is aware that there are conflicting reports in the medical literature concerning the risks and benefits of HRT. We disussed that women are advised by ACOG to take HRT in the lowest dose necessary, and for the shortest time necessary, to control their symptoms. After a long discussion of the potential risks and benefits of HRT she elects to continue HRT. All questions were answered. Rx for HRT is called in to the pharmacy. Call if any vaginal bleeding occurs upon initiation of HRT, or at any time postmenopausally. Not available 09/26/2019 11:27:41 02/16/2021 [id number] atrophic vaginit is: care instructions Not available 02/16/2021 11:15:35 multiple scleros is (MS): care instructions Not available 02/16/2021 11:15:35 This visit is a phone telehealth visit. The patient consented to the visit by phone. The patient was at home at the time of the call and the provider and patient were the only people on the line. I was at [address] [place] [address], [address], [place], at the time of the call. She is taking HRT and needs a refill. She is doing well on the HRT and elects to continue. She has not had any change to her medical history except that she had a left knee, torn meniscus surgery, end of 2018. Her MS has bene stable, but she stopped her meds (Modafinil) as they were not covered by her insurance, so she lost her energy. _ Note from 09/2019: She is here for annual exam, started HRT 3 to 4 weeks ago, she notes that her hot flashes are mouch improved and she is sleeping better. I feel better than I have in years! Very little to no MS symptoms at this time. She and I discussed that she can get her medication at [facility] for the MS meds, and she can afford that. She will contact her neurologist to get the rx refilled, and get back on meds. She is excited about this as she has been fatigued and mostly home bound since 2019 when she ran out of the meds. We discussed having her continue to take hormone replacement therapy. We discussed the need to take a progestin if a uterus is present, and the rationale behind that. We discussed the stated risks of one in 10,000 of development of a blood clot/DVT/PE that could be life threatening. We discussed the Women's Health Initiative study and the findings. We discused the PEPPI study as well. She is aware that there are conflicting reports in the medical literature concerning the risks and benefits of HRT. We disussed that women are advised by ACOG to take HRT in the lowest dose necessary, and for the shortest time necessary, to control their symptoms. After a long discussion of the potential risks and benefits of HRT she elects to continue HRT. All questions were answered. Rx for HRT is called in to the pharmacy. Call if any vaginal bleeding occurs upon initiation of HRT, or at any time postmenopausally. The patient was agreeable to this plan. She is aware of the limitations caused by the covid restrictions, and this phone call, but was appreciative of the efforts to complete the evaluation. Face to face discussion 30 minutes Not available 02/17/2021 08:42:34 12/27/2021 [id number] atrophic vaginit is: care instructions Not available 12/27/2021 12:24:59 learning about healthy weight Not available 12/27/2021 12:24:58 She is here for annual exam, doing well on HRT and elects to continue. Her MS is stable. Not from 09/2019: She is here for annual exam, started HRT 3 to 4 weeks ago, she notes that her hot flashes are mouch improved and she is sleeping better. I feel better than I have in years! Very little to no MS symptoms at this time. She appears to be doing well. We discussed having her continue to take hormone replacement therapy. We discussed the need to take a progestin if a uterus is present, and the rationale behind that. We discussed the stated risks of one in 10,000 of development of a blood clot/DVT/PE that could be life threatening. We discussed the Women's Health Initiative study and the findings. We discused the PEPPI study as well. She is aware that there are conflicting reports in the medical literature concerning the risks and benefits of HRT. We disussed that women are advised by ACOG to take HRT in the lowest dose necessary, and for the shortest time necessary, to control their symptoms. After a long discussion of the potential risks and benefits of HRT she elects to continue HRT. All questions were answered. Rx for HRT is called in to the pharmacy. Call if any vaginal bleeding occurs upon initiation of HRT, or at any time postmenopausally. Not available 12/27/2021 12:25:21 02/14/2023 [id number] This visit is a phone telehealth visit. The patient consented to the visit by phone. The patient was at home at the time of the call and the provider and patient were the only people on the line. I was at [address] [facility], [address], [place], [place], at the time of the call. She is doing well on her HRT and would like to continue. so we are going over the medication renewal today. She has not developed any cardiac issues, is not on a blood thinner, her MS is stable. Note from 01/04: She is here for annual exam, doing well on HRT and elects to continue. Her MS is stable. _ She is not on any MS meds at this time, they are happy with my progress so far. She is caring fore her , he just had a blood clot in his leg vein bypass, she is stressed a bit. She notes that wiht her HRT, I feel like I'm my normal temperature again! We discussed having her continue to take hormone replacement therapy. We discussed the need to take a progestin if a uterus is present, and the rationale behind that. We discussed the stated risks of one in 10,000 of development of a blood clot/DVT/PE that could be life threatening. We discussed the Women's Health Initiative study and the findings. We discused the PEPPI study as well. She is aware that there are conflicting reports in the medical literature concerning the risks and benefits of HRT. We disussed that women are advised by ACOG to take HRT in the lowest dose necessary, and for the shortest time necessary, to control their symptoms. After a long discussion of the potential risks and benefits of HRT she elects to continue HRT. All questions were answered. Rx for HRT is called in to the pharmacy. Call if any vaginal bleeding occurs upon initiation of HRT, or at any time postmenopausally. The patient was agreeable to this plan. She is aware of the limitations caused by the covid restrictions, and this phone call. Face to face discussion 20 minutes Not available 02/14/2023 09:27:25 02/12/2024 [id number] multiple scleros is (MS): care instructions Not available 02/12/2024 11:11:41 atrophic vaginit is: care instructions Not available 02/12/2024 11:11:08 learning about healthy weight Not available 02/12/2024 11:11:08 She is here for annual exam, doing well on HRT and elects to continue. Her MS is stable. She has been falling a good amount, lately, though. She is not using a cane. She does have a handicap parking but does not use it because she feels other people need it more. Doing well on her HRT, elects to continue, We discussed having her continue to take hormone replacement therapy. We discussed the need to take a progestin if a uterus is present, and the rationale behind that. We discussed the stated risks of one in 10,000 of development of a blood clot/DVT/PE that could be life threatening. We discussed the Women's Health Initiative study and the findings. We discused the PEPPI study as well. She is aware that there are conflicting reports in the medical literature concerning the risks and benefits of HRT. We disussed that women are advised by ACOG to take HRT in the lowest dose necessary, and for the shortest time necessary, to control their symptoms. After a long discussion of the potential risks and benefits of HRT she elects to begin HRT. All questions answered. Rx for HRT is called in to the pharmacy. Call if any vaginal bleeding occurs upon initiation of HRT, or at any time postmenopausally. Not available 02/12/2024 11:13:02 Reason for Referral None Reported. Results Created Date Observation Date Name Description Value Unit Range Abnormal Flag Note LastModifiedBy Organization Detail LastModifiedTime 09/26/2009/26/2019 fecal occul t blood , stool Occult Blood negati ve Not Available In-Office Order Internal Use Only DO Not Attach Compendium DO Not Attach Compendium, Do Not Delete/merge, [id number] 09/26/2019 10:57:39 08/29/2008/29/2019 estra diol, serum comments [facility], a mem[facility] r of [facility] [address] [facility] [place] [address] Medic al Dire sylvia hernandez MD Not Available [facility] [address] [facility], [place], [address], 08/29/2019 14:38:53 08/29/2008/29/2019 estra diol, serum estradiol 20.4 pg/mL Fulve stran t has been shown to cross -reac t with the estra diol assay and cause false ly eleva ernesto resul ts. For patie nts being treat ed with fulve stran t, Estra diol ultra sensi tive shoul d be order ed. This test is perfo rmed by LC/MS and is not expec ernesto to show cross react ivity to fulve stran t. ESTRA DIOL REFER ENCE RANGE S (PG/M L) FEMAL ES NILO LLY MENST RUATI NG: FOLLI CULAR PHASE 21.4 - 164.8 MIDCY DENNY PEAK 49.9 - 367.2 LUTEA L PHASE 40.2 - 259.0 POSTM ENOPA USAL: ON HRT <11 - 462.1 UNTRE ATED <11 - 58.3 Not Available [facility] [address] [place], [address], 08/29/2019 14:38:53 08/29/20 19 08/29/2019 FSH (foll icle- stimu latin g hormo ne), serum comments [facility] a [facility] [address] [facility] [place] [address] Medic al Direc sylvia hernandez MD Not Available [facility] [address] [place], [address], 08/29/2019 15:08:16 08/29/20 19 08/29/2019 FSH (foll icle- stimu latin g hormo ne), serum follicle stimulating hormone 61.8 mIU/m L RECHE CKED FSH REFER ENCE RANGE S (MIU/ ML) FEMAL ES NILO LLY MENST RUATI NG: FOLLI CULAR PHASE 2.3 - 12.6 MIDCY DENNY PEAK 5.2 - 17.5 LUTEA L PHASE 1.7 - 9.5 POSTM ENOPA USAL: ON HRT 5.9 - 72.8 UNTRE ATED 12.7 - 132.2 Not Available [facility] [address] [place], [address], 08/29/2019 15:08:16 09/26/20 19 09/26/2019 pap, LB [id number] ThinP rep Pap, Image d: NEGAT SWATI FOR SQUAM OUS INTRA EPITH ELIAL LESIO N AND MALIG BISMARK . Florinda Holcomb , [place]( CP) (Case elect denis palma samira d 09 30 2019) ADEQU ACY: Satis facto ry Endoc ervic al/tr ansfo rmati on zone compo nent absen t. SOURC E: ThinP rep Pap HPV IF ASCUS , Cervi barbie, Image d CLINI BARBIE INFOR MATIO N: HPV If Diagn osis of ASCUS . MENOP AUSE [Z12. 4, Z01.4 19] Not Available [facility], Cytopathology Service [address] [place], [address], 09/30/2019 13:05:45 12/27/19 22 12/27/2021 PAP1C ASE [id number] ThinP rep Pap, Image d: NEGAT SWATI FOR SQUAM OUS INTRA EPITH ELIAL LESIO N AND MALIG BISMARK . Note: The Pap test is a scree nathanael test with an inher ent false negat swati rate. Autom ated presc reeni ng of all liqui d based speci mens is perfo rmed by the ThinP rep Imagi ng Syste dae mulligan [facility] lady Chaves r , CT( CP) (Case elect denis palma samira d 01 11 2022) ADEQU ACY: Satis facto ry Endoc ervic al/tr ansfo rmati on zone compo nent absen t. SOURC E: ThinP rep Pap HPV IF Ascus : Refle x 16 and 18, Cervi barbie, Image d CLINI BARBIE INFOR MATIO N: HPV If Diagn osis of ASCUS . Z12.4 Not Available [facility], Cytopathology Service [address] [place], [address], 01/11/2022 16:51:37 02/12/20 24 02/15/2024 IGP, RFX APTIM A HPV ASCU diagnosis: Commen t NEGAT SWATI FOR INTRA EPITH ELIAL LESIO N OR MALIG BISMARK . Not Available [facility] ([facility]) [address] [facility], [place], [address], 02/15/2024 12:06:49 02/12/20 24 02/15/2024 IGP, RFX APTIM A HPV ASCU specimen adequacy: Commen t Satis facto ry for evalu ation . No endoc ervic al compo nent is ident ified . Not Available [facility] ([facility]) [address] [facility], [place], [address], 02/15/2024 12:06:49 02/12/20 24 02/15/2024 IGP, RFX APTIM A HPV ASCU clinician provided ICD10: Ana carlson Z12.4 Not Available [facility] ([facility]) [address] [place], [address], 02/15/2024 12:06:49 02/12/20 24 02/15/2024 IGP, RFX APTIM A HPV ASCU performed by: Justin Albert (ASCP ) Not Available [facility] ([facility]) [address] [place], [address], 02/15/2024 12:06:49 02/12/20 24 02/15/2024 IGP, RFX APTIM A HPV ASCU . . Not Available [facility] ([facility]) [address] [place], [address], 02/15/2024 12:06:49 02/12/20 24 02/15/2024 IGP, RFX APTIM A HPV ASCU note: Ana carlson The Pap smear is a scree nathanael test desig basil to aid in the detec tion of tonja ligna nt and malig nant condi tions of the uteri ne cervi x. It is not a diagn ostic proce dure and shoul d not be used as the sole means of detec ting cervi barbie cance r. Both false -posi tive and false -nega tive repor ts do occur . Not Available [facility] ([facility]) [address] [facility], [place], [address], 02/15/2024 12:06:49 02/12/20 24 02/15/2024 IGP, RFX APTIM A HPV ASCU test methodology: Ana carlson This liqui d based ThinP rep(R ) pap test was scree basil with the use of an image guide d systmason m. Not Available [facility] ([facility]) [address] [place], [address], 02/15/2024 12:06:49 02/12/20 24 02/15/2024 IGP, RFX APTIM A HPV ASCU . Commen t The HPV DNA refle x crite melanie were not met with this speci men resul t there fore, no HPV testi ng was perfo rmed. Not Available [facility] ([facility]) [address], [place], [address], 02/15/2024 12:06:49 11/08/20 21 11/08/2021 MAMMO , diagn ostic , digit al, bilat eral No observ ation record ed. [facility] (Ul[facility]ound) [address] [place], [address], 11/08/2021 14:39:41 11/15/19 22 11/15/2021 MAMMO , diagn ostic , digit al, bilat eral No observ ation record ed. [address] [facility] Imaging Dept [address] [place], [address], 11/16/2021 09:27:24 11/15/19 22 11/15/2021 US, rojelio t No observ ation record ed. [address] [facility] [address] [place], [address], 11/16/2021 09:27:24 03/07/20 23 02/07/2023 MAMMO , diagn ostic , digit al, unila teral No observ ation record ed. [address] [facility] [address] [place], [address], 03/07/2023 15:49:31 Result Notes None recorded. Problems Name Problem SNOMED Code Status Onset Date Resolution Date Notes Provider Name and Address Organization Details Recorded Time Essential hypertension 93221932 Active 2018 Patsy lemos [place] [facility], 9 10:42:09 Multiple sclerosis 86494138 Active 1999 ETH[place] Champion in [facility], 9 10:43:11 Diverticula of intestine 06716125 Active 2018 ETHAN Champion in [facility], 9 10:50:51 Arthritis 1984604 Active 2018 ETHAN Champion in [facility], 9 10:57:55 Menopausal syndrome 240119410 Active 2018 Mary Fay MD [address], [place], [address], [place] [facility], 9 09:49:22 Atrophic vaginitis 17055451 Active 2018 Mary Fay MD [address], [place], [address], [place] [facility], 9 11:07:33 Problem Notes None recorded. Procedures Surgical History Date Name Laterality Status Provider Name and Address Organization Details Recorded Time 2 Most Recent Mammogram completed Olga Gimenez in [facility], 02/05/2024 12:44:51 3 Other completed Patsy Gimenez in [facility], 08/29/2019 10:53:05 9 Laparoscopy completed Patsy Gimenez in [facility], 08/29/2019 10:51:47 excision of bunion completed Patsy Gimenez in [facility], 08/29/2019 10:53:16 excision of lipoma completed Mary Fay MD [address], [place], [address], [place] [facility], 09/26/2019 11:26:06 repair of meniscus completed Mary Fay MD [address], [place], [address], [place] [facility], 02/16/2021 11:08:44 Imaging Results Imaging Date Name Status LastModified by Organiz ation Details LastModified Time 11/08/2021 MAMMO, diagnostic, digital, bilateral completed [facility] (Ultrasound) [address] [place], [address], 11/08/2021 14:39:41 11/15/2021 MAMMO, diagnostic, digital, bilateral completed [address] [facility] [address] [place], [address], 11/16/2021 09:27:24 11/15/2021 US, [facility] [address] [place] [address], [address], 11/16/2021 09:27:24 02/07/2023 MAMMO, diagnostic, digital, unilateral completed [address] [facility] [address] [place] [address], [address], 03/07/2023 15:49:31 Procedure Notes None recorded. Medical Equipment None Reported. Allergies No known drug allergies Medications Name Sig Start Date Stop Date Status Note LastModified by Organization Details LastModified Time celecoxib 200 mg capsule TAKE 1 CAPSULE BY MOUTH EVERY DAY WITH FOOD active Not Available Not Available No t Available gabapentin 600 mg tablet TAKE 1 TABLET BY MOUTH TWICE A DAY active Not Available Not Available No t Available atorvastati n 20 mg tablet TAKE 1 TABLET BY MOUTH EVERY DAY active Not Available Not Available No t Available tizanidine 2 mg tablet TAKE 1 TABLET BY MOUTH THREE TIMES A DAY NEEDED active Not Available Not Available No t Available citalopram 40 mg tablet TAKE 1 TABLET BY MOUTH EVERY DAY active Not Available Not Available No t Available tizanidine 4 mg tablet TAKE 1 TABLET BY MOUTH THREE TIMES A DAY NEEDED active Not Available Not Available No t Available tretinoin 0.025 % topical cream APPLY SMALL AMOUNT AT BEDTIME active Not Available Not Available No t Available lisinopril 20 mg tablet TAKE 1 TABLET BY MOUTH EVERY DAY FOR 30 DAYS 02/11 completed Not Available Not Available Not Available spironolact one 100 mg tablet TAKE 1 TABLET BY MOUTH EVERY DAY active Not Available Not Available No t Available amlodipine 2.5 mg tablet 02/16 completed Not Available Not Available Not Available amlodipine 5 mg tablet TAKE 1 TABLET BY MOUTH EVERY DAY FOR 90 DAYS 02/11 completed Not Available Not Available Not Available minoxidil 2.5 mg tablet TAKE 1/2 TABLET DAILY 02/11 completed Not Available Not Available Not Available Tazorac 0.05 % topical cream APPLY A PEA SIZED AMOUNT AT BEDTIME. 02/11 completed Not Available Not Available Not Available modafinil 200 mg tablet TAKE 1 TABLET BY MOUTH UP TO TWICE DAILY active Not Available Not Available No t Available estradiol 1 mg tablet one tab by mouth daily active Not Available Not Available No t Available amlodipine 10 mg tablet TAKE 1 TABLET BY MOUTH EVERY DAY FOR 90 DAYS 02/11 completed Not Available Not Available Not Available nortriptyli ne 10 mg capsule TAKE 2 CAPSULES BY MOUTH AT BEDTIME 90 DAYS active Not Available Not Available No t Available prednisone 50 mg tablet TAKE 1 TABLET BY MOUTH EVERY DAY FOR 5 DAYS 02/11 completed Not Available Not Available Not Available losartan 25 mg tablet TAKE 1 TABLET BY MOUTH EVERY DAY FOR 30 DAYS active Not Available Not Available No t Available progesteron e micronized 200 mg capsule take 1 capsule by mouth every day at bedtime 2023 active Not Available Not Available Not Avai lable metoprolol succinate ER 25 mg tablet,exte nded release 24 hr TAKE 1 TABLET BY MOUTH EVERY DAY active Not Available Not Available No t Available estradiol 0.01% (0.1 mg/gram) vaginal cream Insert 0.5 g every day by vaginal route. 02/14 completed Not Available Not Available Not Available norethindro ne (contracept swati) 0.35 mg tablet TAKE 1 TABLET BY MOUTH EVERY DAY 09/26 completed Not Available Not Available Not Available clobetasol 0.05 % scalp solution APPLY SOLUTION TO SCALP DAILY FOR 7-14 DAYS 02/16 completed Not Available Not Available Not Available finasteride 5 mg tablet TAKE 1 TABLET BY MOUTH EVERY DAY active Not Available Not Available No t Available naproxen 500 mg tablet TAKE 1 TABLET BY MOUTH TWO TIMES A DAY 02/16 completed Not Available Not Available Not Available spironolact one 50 mg tablet TAKE 1 TABLET BY MOUTH EVERY DAY active Not Available Not Available No t Available oxycodone 5 mg tablet TAKE 1 TO 2 TABLETS BY MOUTH EVERY 6 HOURS NEEDED 08/29 completed Not Available Not Available Not Available modafinil 100 mg tablet TAKE 2 TABLETS (200 MG) BY ORAL ROUTE ONCE DAILY IN THE MORNING FOR 30 DAYS 02/16 completed Not Available Not Available Not Available azelaic acid 15 % topical gel APPLY TO AFFECTED AREA TWICE A DAY active Not Available Not Available No t Available bupropion HCl XL 150 mg 24 hr tablet, extended release TAKE 1 TABLET BY MOUTH EVERY DAY IN THE MORNING FOR 90 DAYS active Not Available Not Available No t Available tizanidine 2 mg capsule TAKE 1 CAPSULE BY MOUTH THREE TIMES A DAY FOR 10 DAYS NEEDED active Not Available Not Available No t Available tizanidine 4 mg capsule TAKE 1 CAPSULE BY MOUTH THREE TIMES A DAY FOR 10 DAYS NEEDED active Not Available Not Available No t Available Vitals Date Recorded Body height Heart rate Body mass index (BMI) Body weight Systolic blood pressure Diastolic blood pressure Provider Name and Address Organization Details Last Updated DateTime 9 166.37 cm 75 /min 31.6 kg/m2 05894.3 3 g 123 mm[Hg] 80 mm[Hg] Patsy Gimenez in [facility], 9 10:53:08 Date Recorded Body weight Body mass index (BMI) Body height Body temperature Heart rate Systolic blood pressure Diastolic blood pressure Provider Name and Address Organization Details Last Updated DateTime 2 22737.4 4 g 33.6 kg/m2 166.37 cm 97.4 [degF] 85 /min 160 mm[Hg] 97 mm[Hg] Imelda Gimenez in [facility], 2 10:52:04 Date Recorded Body height Body mass index (BMI) Body weight Body temperature Heart rate Systolic blood pressure Diastolic blood pressure Provider Name and Address Organization Details Last Updated DateTime 4 166.37 cm 35 kg/m2 42304.0 5 g 97 [degF] 93 /min 140 mm[Hg] 84 mm[Hg] mikki Gimenez in [facility], 4 10:43:30 Social History Question Answer Notes LastModified by Organizat ion Details LastModified Time Tobacco Smoking Status Former Smoker Patsy Potorski null, [place] - [facility], 08/29/2019 10:45:11 Do You Have An Advance Directive? Yes Information not available 08/29/2019 What Is Your Level Of Alcohol Consumption? Occasional Information not available 08/29/2019 How Many Years Have You Consumed Alcohol? 35 Information not available 12/27/2021 What Is Your Level Of Caffeine Consumption? Occasional Information not available 08/29/2019 How Much Tobacco Do You Chew? None Information not available 08/29/2019 In The 14 Days Before Symptom Onset, Have You Had Close Contact With A Laboratory-confir med COVID-19 While That Case Was Ill? No Information not available 02/16/2021 In The 14 Days Before Symptom Onset, Have You Had Close Contact With A Person Who Is Under Investigation For COVID-19 While That Person Was Ill? No Information not available 02/16/2021 Have You Been To An Area Known To Be High Risk For COVID-19? No Information not available 02/16/2021 Are You Currently Employed? No Information not available 12/27/2021 What Type Of Diet Are You Following? REGULAR Information not available 02/16/2021 Which Illicit Or Recreational Drugs Have You Used? None Information not available 08/29/2019 Do You Reside In Or Have You Traveled To An Area Where Ebola Virus Transmission Is Active? No Information not available 08/29/2019 Do You Or Have You Ever Used E-cigarettes Or Vape? Never Used Electronic Cigarettes Information not available 08/29/2019 Education 2 Year College Informatio n not available 08/29/2019 What Is The Highest Grade Or Level Of School You Have Completed Or The Highest Degree You Have Received? [id number] Information not available 12/27/2021 What Is Your Occupation? Unemployed [employer] Information not available 02/16/2021 How Many Days In The Past Year Have You Had A Heavy Drinking Consumption (4+ Female, 5+ Male)? 0 Information no t available 08/29/2019 Are There Any Guns Present In Your Home? Yes Gun Safe Information not available 08/29/2019 High Number Of Sexual Partners Yes Information not available 08/29/2019 To Which Gender Do You Self-identify? Female [email or web address] Information not available 08/29/2019 Marital Status joi Informatio n not available 08/29/2019 What Was The Date Of Your Most Recent Tobacco Screening? 12/27/2021 Information not available 12/27/2021 What Is Your Relationship Status? Information not available 12/27/2021 Seat Belts Used Routinely No [email or web address] Information not available 08/29/2019 Are You Sexually Active? Yes Information not available 02/12/2024 Smoke Alarm In Home Yes [email or web address] Information not available 08/29/2019 At What Age Did You Start Smoking Tobacco? 13 Information not available 08/29/2019 Do You Or Have You Ever Used Smokeless Tobacco? Never Used Smokeless Tobacco [email or web address] Information not available 08/29/2019 How Much Tobacco Do You Smoke? No [employer] Information not available 08/29/2019 General Stress Level High Information not available 02/12/2024 Do You Feel Stressed (tense, Restless, Nervous, Or Anxious, Or Unable To Sleep At Night)? [id number] Information not available 12/27/2021 Do You Use Any Illicit Or Recreational Drugs? No Information not available 12/27/2021 Do You Use Sunscreen Routinely? No Get[employer] Information not available 08/29/2019 How Many Years Have You Smoked Tobacco? 15 [employer] Information not available 08/29/2019 Have You Recently (within The Last 12 Weeks, Or During A Current ) Traveled To Or Lived In A Zika-affected Area? No [employer] Information not available 08/29/2019 Do You Or Have You Ever Used Any Other Forms Of Tobacco Or Nicotine? No Information not available 12/27/2021 How Many Days In The Past Year Have You Consumed 4 Or More Drinks? 0 Information no t available 12/27/2021 Sex: Female Functional Status Question Answer Note LastModified by Organization D etails LastModified Time What is your exercise level? None Information not available 12/27/2021 Mental Status None recorded. Family History Relationship Description Onset Age of this Age Resolved Age Notes LastModified by Organization Details LastModified Time Mother Essential hypertension joi Not available 10:44:06 Notes:Not in contact w/fathe r Medical History Condition Response High Blood Pressure Y Autoimmune Condition Y Depression Y History of Ovarian Cancer N Anxiety Disorder Y Arthritis Y Infertility N Kidney or Bladder Problems N Osteopenia N Asthma N Hepatitis N Anesthesia complications N Candidate for MyRisk panel N Lung Disease N Defects or Inherited Disease N BRCA testing in past N History of Cancer N Endometriosis N Thyroid Problems N GI Problems Y Anemia Y History of Breast Cancer N RADHA exposure N Psychiatric Illness N Diabetes N Headaches or Migraines N Heart Disease N Hypertension Y Osteoporosis N Gynecological History Statement/Question Response Menses Monthly N If Post Menopausal, Age at Menopause 48 Age at Menarche 10 Most Recent Mammogram 12/27/2021 Hormone Replacement Therapy Yes Obstetrics History GPAL:G 0 P 0 0 0 0 Immunizations Vaccine Type Date Status Note Provider Nam e and Address Organization Details Recorded Time Influenza, split virus, quadrivalent, preservative 9 completed ETHAN Champion in [facility], 08/29/2019 10:41:51 Influenza, split virus, quadrivalent, preservative 0 completed ETHAN Ervin in [facility], 02/16/2021 10:57:04 Influenza, split virus, quadrivalent, preservative 1 completed ETHAN Ervin in [facility], 12/27/2021 10:54:01 Past Encounters Encounter ID Performer Location Encounter Start Date Encounter Closed Date Diagnosis/Indication Diagnosis SNOMED-CT Code Diagnosis ICD10 Code Diagnosis Note [id number] MD MARY Sim MD [address] [place] [address] 08/29/2019 10:27:41 08/29/2019 13:25:05 Amenorrhea 59995602 N91.2 Menopausal syndrome 1237 64095 N95.1 Multiple sclerosis 13952 007 G35 Essential hypertension 69013927 I10 [id number] MD MARY Sim MD [address] [place] [address] 09/26/2019 10:44:24 09/26/2019 12:58:41 Specialized medical examination 36636163 Z01.419 Screening for malignant neoplasm of rectum 079305438 Z12.12 Screening mammography 24 855480 Z12.31 Atrophic vaginitis 87317 000 N95.2 [id number] MD MARY Sim MD [address] [place] [address], [facility] [place] [address] 02/16/2021 10:52:23 02/17/2021 10:31:08 Menopausal syndrome 968231299 N95.1 Multiple sclerosis 13462 007 G35 Atrophic vaginitis 83783 000 N95.2 [id number] MD MARY Sim MD [address] [place] [address],[facility] [place] [address] 12/27/2021 10:48:59 12/27/2021 13:38:57 Screening for malignant neoplasm of cervix 678602099 Z12.4 Screening mammography 24 097045 Z12.31 Screening for osteoporosis 678724492 N95.8 Menopausal syndrome 1237 35046 N95.1 Atrophic vaginitis 82329 000 N95.2 [id number] MD MARY Sim MD [address] [place] [address],[facility] [place] [address] 02/14/2023 09:14:56 02/14/2023 10:08:46 Menopausal syndrome 606359073 N95.1 [id number] MD MARY Sim MD [address] [place] [place] [address],[place] [address] [place] [address] 02/12/2024 10:40:15 02/12/2024 13:17:05 Screening for malignant neoplasm of cervix 736041373 Z12.4 Screening mammography 24 732769 Z12.31 Screening for osteoporosis 763873074 N95.8 Multiple sclerosis 96478 007 G35 Menopausal syndrome 1237 66691 N95.1 Health Concerns Section Related Observation LastModified by Organization Detai ls LastModified Time None Recorded Concern Status LastModified by Organization Details LastModified Time None Recorded Advance Directives Directive Y: Payers Encounter Date Sequence Insurance Name Policy Number Policy Dias Covered Member ID Dias Member ID Guarantor Name 09/26/2019 1 [place] PPO) [id number] Anabel Palacioslin [id number] 35 Anabel Connell 02/16/2021 1 [place] PPO) [id number] Anabel Pawlin [id number] 35 Anabel Pawfredo 12/27/2021 1 [place] PPO) [id number] Anabel Pawlin [id number] 35 Anabel Pawfredo 02/14/2023 1 [place]) [id number] Anabel Pawlin [id number] 35 Anabel Connell 02/12/2024 1 [place] PPO) [id number] Anabel Connell [id number] Anabel Connell Notes Date Note Type Note Provider Name and Address Organization Details Recorded Time 09/26/2019 text/html She is here for annual exam, started HRT 3 to 4 weeks ago, she notes that her hot flashes are mouch improved and she is sleeping better. I feel better than I have in years! Very little to no MS symptoms at this time. Note from 08/29/19: She is here as a new patient for consult about menopause. She has not had a menses age 48. She was initially put on a progestin only control pill many years ago for control of menorrhagia. Her had a vasectomy in 1984. She is on disability for MS. She works as a pro shop attendant. She notes a few year history of persistent hot flashes, night sweats, insomnia in the middle of the night, mood instability, vaginal dryness, dyspareunia, increased bladder frequency and urgency. I just don't know what's MS and what's menopause she notes. The issues of menopause were discussed at length. Mary Fay MD [address] [facility],[address], [place], [address], [place] - [facility], 09/26/2019 11:33:53 02/16/2021 text/html This visit is a phone telehealth visit. The patient consented to the visit by phone. The patient was at home at the time of the call and the provider and patient were the only people on the line. I was at [address] [facility], [place] [address], [place], [place], at the time of the call. She is taking HRT and needs a refill. She is doing well on the HRT and elects to continue. She has not had any change to her medical history except that she had a left knee, torn meniscus surgery, end of 2018. Her MS has bene stable, but she stopped her meds (Modafinil) as they were not covered by her insurance, so she lost her energy. Note from 09/2019: She is here for annual exam, started HRT 3 to 4 weeks ago, she notes that her hot flashes are mouch improved and she is sleeping better. I feel better than I have in years! Very little to no MS symptoms at this time. Mary Fay MD [address] [facility] [address], [place], [address], [employer] [facility], 02/17/2021 08:43:48 12/27/2021 text/html She is here for annual exam, doing well on HRT and elects to continue. Her MS is stable. Not from 09/2019: She is here for annual exam, started HRT 3 to 4 weeks ago, she notes that her hot flashes are mouch improved and she is sleeping better. I feel better than I have in years! Very little to no MS symptoms at this time. Mary Fay MD [address] [facility] [address], [place], [address], [facility], 12/27/2021 12:26:09 02/14/2023 text/html This visit is a phone telehealth visit. The patient consented to the visit by phone. The patient was at home at the time of the call and the provider and patient were the only people on the line. I was at [address] [facility], [address], [place], at the time of the call. She is doing well on her HRT and would like to continue. so we are going over the medication renewal today. She has not developed any cardiac issues, is not on a blood thinner, her MS is stable. Note from 01/04: She is here for annual exam, doing well on HRT and elects to continue. Her MS is stable. Mary Fay MD [address] [facility],[address], [place], [address], [place] - [facility], 02/14/2023 09:47:07 02/12/2024 text/html She is here for annual exam, doing well on HRT and elects to continue. Her MS is stable.She has been falling a good amount, lately, though. She is not using a cane. She does have a handicap parking but does not use it because she feels other people need it more. Mary Fay MD [address] [facility],[address], [place], [address], [place] - [facility], 02/12/2024 11:13:28 OBGyn Episode No OBEpisode recorded.
== END 2024-12-04 09:34 | disposition home or self-care (01) ==
PROVIDERS: PCP Internal Medicine; Visit Provider Internal Medicine Hypertension Specialist
DX: N18.32 Chronic kidney disease, stage 3b (principal); I10 Essential (primary) hypertension; G35 Multiple sclerosis; M17.9 Osteoarthritis of knee, unspecified; G62.9 Polyneuropathy, unspecified; Z86.59 Personal history of other mental and behavioral disorders
CPT/HCPCS: 99214

== ENCOUNTER 2025-01-01 10:23 | Outpatient (AMB) | payer BC, SELFPAY ==
--- NOTE | 2025-01-01 10:28 | HO.NEPHOV_ITS ---
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 She has been on spironolactone 50 mg, metoprolol 25 mg, losartan 25 mg once a day. There has been fluctuations in her blood pressure. Apparently she has been on spironolactone for a longer period of time and this was initially prescribed for the treatment of acne. She had Holter monitoring done few years ago and metoprolol was started after the Holter monitoring. Against this background about a month ago she developed diarrhea and p.o. intake was poor. She developed acute kidney injury. While this episode happened she was on above medications along with Celebrex 200 mg once a day. She has been on Celebrex for several years and prior to that she was on several other NSAIDs for osteoarthritis. Once the episode of diarrhea resolved serum creatinine decreased from 2.0 down to 1.35 over the last several weeks. She has not changed any of her medications despite the advice of discontinuing Celebrex from her PCP. Other ongoing medical problems significant for multiple sclerosis. This is in remission. She follows with neurologist. She has a history of depression. She is on both Wellbutrin and citalopram 40 mg a day. She has been on this for a long time History of significant osteoarthritis she has been on NSAIDs for a long time. 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 History of neuropathy. She is on gabapentin 600 mg b.i.d. along with the nortriptyline. Again she has been on this for several years. She has 3 siblings no history of hypertension. Grandmother had end stage renal disease. No history of smoking cigarettes or alcohol abuse. She uses marijuana She is not on a salt restricted diet. In fact she uses plenty of pickle and sometimes drinks pickle juice 07/24/24 ; She has cut back on Aldactone ; Still on Celebrex 200 mg 12/04/24 ; BP has been low ;Feels light headed ; Off NSAIDS 01/01/25 Off Aldactone BP elevated today Has trouble sleeping Physical Exam Vital Signs: Last Vital Signs Pulse 102 H 01/01/25 10:29 BP 170/104 H 01/01/25 10:29 Pulse Ox 98 01/01/25 10:29 Oxygen Delivery Method Room Air 01/01/25 10:29 BMI result Body Mass Index 33.7 Comfortable Neck supple no JVD. Lungs entry equal no rales. Heart S1-S2 heard no gallop or rub. Abdomen soft nontender. Neuro alert awake oriented. No asterixis. Extremities no edema. Results Reviewed Results Reviewed: All labs labs reviewed. As of June 11 serum creatinine 1.35 serum electrolytes normal. All prior labs were reviewed Peak serum creatinine was 2.04 on May 14 Nephrology Results: Urine Protein Negative mg/dL (Neg-Trace) 06/12/24 Urine Creatinine 52.90 mg/dL 06/12/24 Renal US 06/20/24 Assessment & Plan Assessment & Plan (1) CKD (chronic kidney disease): Code(s): N18.9 - Chronic kidney disease, unspecified Category: Medical Qualifiers: Chronic kidney disease stage: stage 3 (moderate) Chronic kidney disease stage 3 subtype: stage 3b (GFR 30-44) Qualified Code(s): N18.32 - Chronic kidney disease, stage 3b (2) HTN (hypertension): Code(s): I10 - Essential (primary) hypertension Category: Medical Qualifiers: Hypertension type: primary hypertension Qualified Code(s): I10 - Essential (primary) hypertension (3) Multiple sclerosis: Code(s): G35 - Multiple sclerosis Category: Medical (4) Osteoarthritis: Code(s): M19.90 - Unspecified osteoarthritis, unspecified site Category: Medical Qualifiers: Osteoarthritis location: knee Osteoarthritis type: unspecified Laterality: unspecified laterality Qualified Code(s): M17.9 - Osteoarthritis of knee, unspecified (5) Neuropathy: Code(s): G62.9 - Polyneuropathy, unspecified Category: Medical (6) History of depression: Code(s): Z86.59 - Personal history of other mental and behavioral disorders Category: Medical Plan 58-year-old woman with a history of hypertension has sustained acute kidney injury. Acute kidney injury is most likely due to hypoperfusion from the combination of losartan, spironolactone and Celebrex. She developed diarrhea leading to dehydration which could be the precipitating event. Once diarrhea resolved and her volume status has been optimized renal function is gradually improving. She probably has underlying chronic kidney disease and baseline is yet to be determined. Ideally she should not be on a combination of losartan spironolactone and Celebrex. This combination certainly could lead to hypoperfusion. Upon discussing with her she does not want to stop Celebrex due to the severity of osteoarthritis. Creatiinine is up to 2.4 - Due to hypoperfusion ; USG - no obstruction She is should cut back on Celebrex! Taper spironolactone. Other possibility would be to discontinue losartan. No evidence of glomerular nephritis or interstitial disease based on UA Overall she is on multiple medications and we should be able to taper and discontinue some of her medications. I have discussed this with her. Over the course of several weeks , gradually taper gabapentin, nortriptyline, citalopram and Wellbutrin. 12/04/24; BP was rather low ; Stopped spironolactone 25 mg 01/01/25 Bp is elevated Restart Spironolactone at 12.5 mg daily Stay on low-sodium diet. Encouraged her to avoid pickle and pickle juice Watch blood pressure . Continue to hold Celebrex Encouraged her to increase p.o. fluid intake. Creatinine is at 1.6; Shall watch Orders: Orders Basic Metabolic Panel 3 Months I10 - Essential (primary) hypertension, N18.32 - Chronic kidney disease, stage 3b Coding Level of Care Code Est Pt Level 4 (07033) Diagnoses Stage 3b chronic kidney disease N18.32 Chronic kidney disease stage: stage 3 (moderate) Chronic kidney disease stage 3 subtype: stage 3b (GFR 30-44) Primary hypertension I10 Hypertension type: primary hypertension Multiple sclerosis G35 Osteoarthritis of knee, unspecified laterality, unspecified osteoarthritis type M17.9 Osteoarthritis location: knee Osteoarthritis type: unspecified Laterality: unspecified laterality Neuropathy G62.9 History of depression Z86.59
[2025-01-01 10:29] VITALS: BP 170/104; PULSE 102; O2SAT 98; BMI 33.7
--- OUTSIDE RECORDS SUMMARY | 2025-01-01 11:03 | XMS_ITS | Clinical Summary ---
Author Organization [facility] Address [address] [place] [address] Care Team Providers Care Manager Nursing Home Name Role Phone MeshaleanderdylonWiliam cuevas Primary Care Provider [phone] Allergies No known active allergies Medications Medication [...] age to complete this topic Care Teams Manager Nursing Home Relationship Specialty Start Date End Date Wiliam Ching DO [address] [place] [address] [address] [place] [address] PCP - General Internal Medicine 09/14/18
--- OUTSIDE RECORDS SUMMARY | 2025-01-01 11:03 | XMS_ITS | Clinical Summary ---
Author Organization [facility] Address [address] [place] [address] Phone Care Team Providers Care Double End Sewer Name Role Phone Wiliam Maravilla DO Primary Care Provider [phone] Allergies No known active allergies Medications amLODIPine (NORVASC) 5 mg tablet Take 2 tablets (10 mg total) by mouth 1 (one) time each day. Active atorvastatin (LIPITOR) 20 mg tablet Take 1 tablet (20 mg total) by mouth 1 (one) time each day. 3 Active buPROPion XL (WELLBUTRIN XL) 150 mg [...] mg tablet Take 2.5 mg by mouth. 0 Active gabapentin (NEURONTIN) 600 mg tablet Take 1 tablet (600 mg total) by mouth 2 (two) times a day. Active L norgest/e.estr adioL-e.estrad (SEASONIQUE) 0.15 mg-30 mcg (84)/10 mcg (7) [...] 100 mg tablet TAKE 1 TABLET DAILY Active AMLODIPINE-LISHA RVASTATIN ORAL Take by mouth. - Oral Active nortriptyline HCl (NORTRIPTYLINE ORAL) Take 1 Tab by mouth 2 times daily. Active celecoxib (CELEBREX ORAL) Take 1 Tab by mouth daily. Active modafiniL (PROVIGIL) 200 mg tabletIndicati ons:Multiple sclerosis (CMS/HCC) Take 1 tablet (200 mg total) by mouth 1 (one) time each day. Max Daily Amount: 200 mg 30 each 5 5 025 Active modafiniL (PROVIGIL) 200 mg tabletIndicati ons:Multiple sclerosis (CMS/HCC) Take 1 tablet (200 mg total) by mouth 1 (one) time each day. Max Daily Amount: 200 mg 30 each 5 4 025 Discontin ued(Reord er) Active Problems Problem Noted Date Diagnosed Date Class 2 obesity with body ma ss index (BMI) of 35.0 to 35.9 in adult 10/02/2024 Lipoma 01/08/2024 HTN (hypertension) 06/12/2020 Arthritis 12/28/2017 Depression 12/28/2017 Multiple sclerosis 12/28/2017 Encounters Date Type Department Care Team Description 10/31/2024 1:15 PM EST Office Visit Bariatric Surgery - [address] [phone] Dago Girard MD Class 2 severe obesity due to excess calories with serious comorbidity and body mass index (BMI) of 36.0 to 36.9 in adult (CMS/HCC) (Primary Dx); Other specified disorders of carbohydrate metabolism (CMS/HCC) 10/04/2024 11:00 AM EST Office Visit [facility] [place] [address] [facility] [address] [place] [address] Estefany Block PA Multiple sclerosis ([facility]) (Primary Dx) 10/02/2024 12:30 PM EST Telemedicine Bariatric Surgery - [place] [address] [facility] [address] [place] [address] Class 2 [...] Hypertension DX:Hypertension Depression DX:Depression MS (multiple sclerosis) ([facility]/HCC) DX:MS (multiple sclerosis) ([facility]) Arthritis DX:Arthritis Bursitis DX:Bursitis Family History Medical [...] drink = 0.6 oz pur e alcohol) Comments Unknown Sex and Gender Information Value Date Recorded Sex Assigned at Not on file Legal Sex Female 2:48 AM EST Gender Identity Not on file Sexual Orientation Not on file Obstetrics History Last Filed [...] Care Team (Late st Contact Info) Description 03/31/2025 10:00 AM EDT Office Visit [facility] [address] [place] [address] Lazaro Moore MD [address] [place] [address] Health Maintenance Due Date Last Done Comments DTaP,Tdap,and Td Vaccines (1 - Tdap) 1984 Hepatitis B Vaccines (1 of 3 - 19+ 3-dose series) 1984 Cervical Cancer Screening: Pap Smear 1986 Pneumococcal Vaccine: 50+ Years (1 of 1 - PCV) 2015 Zoster Vaccines (1 of 2) 2015 Depression Screening 10/22/2022 HIV Screening 10/22/2022 Hepatitis C Screening 10/22/2022 Medicare Annual Wellness Visit 10/22/2022 Social Influencers of Health Screening 10/22/2022 Hypertension/CHF/CAD Annual BMP Blood Test 11/10/2022 COVID-19 Vaccine ( - season) 2024 Influenza Vaccine (#1) 2024 3, 10/01/2021, 08/25/2021, Additional history exists Colorectal Cancer [...] patient's age to complete this topic Meningococcal B Vacine Aged Out No lo nger eligible based on patient's age to complete [...] (BMI) of 36.0 to 36.9 in adult ([facility]/HCC) LIPID PANEL WITH REFLEX TO DIRECT LDL Routine 10/31/2024 1:48 PM EST Class 2 severe obesity due to excess calories with serious comorbidity and body mass index (BMI) of 36.0 to 36.9 in adult (CMS/HCC) HEMOGLOBIN A1C Routine 10/31/2024 1:48 PM EST Class 2 severe obesity due to excess calories with serious comorbidity and body mass index (BMI) of 36.0 to 36.9 in adult (CMS/HCC) Other specified disorders of carbohydrate metabolism (CMS/HCC) GARRISON SCREENING DIGITAL Routine 08/13/2024 1:16 PM EDT Encounter for screening mammogram for malignant neoplasm of breast HM FIT-DNA Routine 09/02/2022 from Last 3 Months or Most Recently Relevant to Health Maintenance Results * (ABNORMAL) Lipid panel with reflex to direct LDL (10/31/2024 1:48 PM EST) Cholesterol 192 0 - 200 mg/dL LAB CHEMISTRY METHOD 10/31/2024 6:33 PM EST [facility] Triglycerides 192(H) 0 - 150 mg/dL LAB CHEMISTRY METHOD 10/31/2024 6:33 PM [facility] HDL 101 >=40 mg/dL LAB CHEMISTRY METHOD 10/31/2024 6:33 PM EST [facility] LDL Calculated 53 0 - 100 mg/dL LAB CHEMISTRY METHOD 10/31/2024 6:33 PM EST [facility] VLDL Cholesterol Reji 38.4 mg/dL LAB CHEMISTRY METHOD 10/31/2024 6:33 PM EST [facility] Non HDL Chol. (LDL+VLDL) 91 <145 mg/dL LAB CHEMISTRY METHOD 10/31/2024 6:33 PM [facility] Chol/HDL Ratio 1.9 0.0 - 4.4 LAB CHEMISTRY METHOD 10/31/2024 6:33 PM EST [facility] Blood Venous blood specimen / Unknown Venipuncture / Unknown 10/31/2024 1:48 PM EST 10/31/2024 1:48 PM EST us Dago Girard MD LAB BLOOD ORDERABLES Final R esult [facility] [address] [place] [address], * Alanine aminotransferase (10/31/2024 1:48 PM EST) ALT (SGPT) 26 10 - 60 unit/L LAB CHEMISTRY METHOD 10/31/2024 6:31 PM EST [facility] Blood Venous blood specimen / Unknown Venipuncture / Unknown 10/31/2024 1:48 PM EST 10/31/2024 1:48 PM EST us Dago Girard MD LAB BLOOD ORDERABLES Final R esult Performing Organization Address City/[facility]/ZIP Co de Phone Number [facility] [address] [place] [address], [place] [phone] * Hemoglobin A1c (10/31/2024 1:48 PM EST) Hemoglobin A1C 5.6 <6.5 % LAB CHEMISTRY METHOD 10/31/2024 8:59 PM EST [facility] Mean Bld Glu Estim. 114 mg/dL LAB CHEMISTRY METHOD 10/31/2024 8:59 PM EST [facility] Blood Venous blood specimen / Unknown Venipuncture / Unknown 10/31/2024 1:48 PM EST 10/31/2024 1:48 PM EST us Dago Girard MD LAB BLOOD ORDERABLES Final R esult Performing Organization Address City/[facility]/ZIP Co de Phone Number [facility] [address] [place] [address], [place] [phone] * GARRISON SCREENING DIGITAL (08/13/2024 1:16 PM EDT) Anatomical Region Laterality Modality Mammography 08/12/2024 1:05 PM EDT Narrative 08/13/2024 1:16 PM EDT [facility] Diagnostic Imaging Department [address], [place] [id number] Patient: ??NOAM TURPIN ?/Age/Sex: 1965 - 58 - F Unit#: ??[id number] ? Location/Status: ??SPDIMAM/REG CLI ? Mnemonic/Ordering Site: ??DIGSC/SPMAM Ordering Physician: ??WILIAM MARAVILLA MD [facility] Screening Digital - 08/12/24 - 1322 Report Status:Signed EXAM: [facility] Screening Digital EXAM DATE AND TIME: 08/12/2024 1:23 PM HISTORY: ??Screening. COMPARISON: ??02/07/23, 11/15/21, 11/08/21 TECHNIQUE: Bilateral digital breast tomosynthesis was performed in the CC and MLO projections. Computer aided detection with [employer] 3D 3.1 was employed. TISSUE DENSITY: b. [...] Mamm[facility] performed at [facility] [address] [place] [address] Dictating Physician: ??TAMY TORRES MD Electronically Signed by: ??TAMY TORRES MD Dic Date/Time: ??08/13/24 1316 Sign date/Time: ??08/13/24 1316 Procedure Note Tamy Torres MD - 09/10/2024 [facility] Diagnostic Imaging Department [address] [place] [address] Patient: NOAM TURPIN /Age/Sex: 1965 - 58 - F Unit#: [id number] Location/Status: SPDIMAM/REG CLI Mnemonic/Ordering Site: [facility] Ordering Physician: WILIAM MARAVILLA MD [facility] Screening Digital - 08/12/24 - 1322 Report Status:Signed EXAM: [facility] Screening Digital EXAM DATE AND TIME: 08/12/2024 1:23 PM HISTORY: Screening. COMPARISON: 02/07/23, 11/15/21, 11/08/21 TECHNIQUE: Bilateral digital breast tomosynthesis was performed in the CCand MLO projections. Computer aided detection with [employer] 3D 3.1was employed. TISSUE DENSITY: b. There [...] Mammogram performed at [facility] [place] [address] Dictating Physician: TAMY TORRES MD Electronically Signed by: TAMY TORRES MD Dic Date/Time: 08/13/24 1316 Sign date/Time: 08/13/241315 Wiliam Maravilla DO IMG BI PROCEDURES Final Resul t * FIT-DNA (Cologuard) (09/02/2022) Pathologist [facility] Colorectal Cancer Screening: FIT-DNA (Cologuard) abstracted ,normal Historical Provider MD HEALTH MAINTENANCE Final Result from Last 3 Months or Most Recently Relevant to Health Maintenance Insurance [employer] - [place] MEDICARE ADVANTAGE Care Teams Double End Sewer Relationship Specialty Start Date End Date Wiliam Maravilla DO [address] [place] [phone] PCP - General 01/27/09
== END 2025-01-01 10:45 | disposition home or self-care (01) ==
PROVIDERS: PCP Internal Medicine; Visit Provider Internal Medicine Hypertension Specialist
DX: N18.32 Chronic kidney disease, stage 3b (principal); I10 Essential (primary) hypertension; G35 Multiple sclerosis; M17.9 Osteoarthritis of knee, unspecified; G62.9 Polyneuropathy, unspecified; Z86.59 Personal history of other mental and behavioral disorders
CPT/HCPCS: 99214

== ENCOUNTER 2025-03-26 10:02 | Outpatient (AMB) | payer BC, SELFPAY ==
[2025-03-26 10:04] VITALS: BP 122/88; PULSE 85; O2SAT 96; BMI 33.8
--- NOTE | 2025-03-26 10:04 | HO.NEPHOV ---
Vital Signs 03/26/25 10:04 Height 5 ft 7 in Weight 216 lb BMI 33.8 BP 122/88 Blood Pressure Location Lt brachial Position Sitting Pulse 85 Pulse Source Pulse Oximeter Pulse Oximetry (%) 96 Oxygen Delivery Method Room Air Intake Visit Reasons: 3mon follow-up w/labs Conf [employer] Required: No Accompanied by: Self / Same As Patient Allergies No Known Allergies Allergy (Verified 03/26/25 10:06) Medication List - Last Reconciled 03/26/25 by James Ansari MD atorvastatin 20 mg PO DAILY bupropion HCl XL 150 mg PO DAILY citalopram 40 mg PO DAILY estradiol 1 mg PO DAILY losartan 25 mg PO DAILY metoprolol succinate ER 25 mg PO DAILY nortriptyline 10 mg PO DAILY progesterone micronized 200 mg PO BEDTIME spironolactone 12.5 mg PO DAILY tizanidine 4 mg PO TID tizanidine 2 mg PO TID HPI Comments Details: Anabel churchill 58-year-old woman with a history of hypertension for almost 5 years. She has been on spironolactone 50 mg, metoprolol 25 mg, losartan 25 mg once a day. There has been fluctuations in her blood pressure. Apparently she has been on spironolactone for a longer period of time and this was initially prescribed for the treatment of acne. She had Holter monitoring done few years ago and metoprolol was started after the Holter monitoring. Against this background about a month ago she developed diarrhea and p.o. intake was poor. She developed acute kidney injury. While this episode happened she was on above medications along with Celebrex 200 mg once a day. She has been on Celebrex for several years and prior to that she was on several other NSAIDs for osteoarthritis. Once the episode of diarrhea resolved serum creatinine decreased from 2.0 down to 1.35 over the last several weeks. She has not changed any of her medications despite the advice of discontinuing Celebrex from her PCP. Other ongoing medical problems significant for multiple sclerosis. This is in remission. She follows with neurologist. She has a history of depression. She is on both Wellbutrin and citalopram 40 mg a day. She has been on this for a long time History of significant osteoarthritis she has been on NSAIDs for a long time. 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 History of neuropathy. She is on gabapentin 600 mg b.i.d. along with the nortriptyline. Again she has been on this for several years. She has 3 siblings no history of hypertension. Grandmother had end stage renal disease. No history of smoking cigarettes or alcohol abuse. She uses marijuana She is not on a salt restricted diet. In fact she uses plenty of pickle and sometimes drinks pickle juice 07/24/24 ; She has cut back on Aldactone ; Still on Celebrex 200 mg 12/04/24 ; BP has been low ;Feels light headed ; Off NSAIDS 01/01/25 ;Off Aldactone ;BP elevated today ;Has trouble sleeping 03/26/25 59-year-old female presenting with medication review and management of chronic conditions. Her essential hypertension has been better managed with current medication, showing stable blood pressure levels. She reports no adverse symptoms such as lightheadedness, headaches, nausea, vomiting, or leg swelling. Currently on 12.5 mg of spironolactone Her chronic kidney disease is actively monitored, with improved creatinine levels and stable potassium, facilitated by modifications in her medication regimen. Depression is managed with Citalopram 40 mg, and current symptoms suggest stability in her mood. The patient is also scheduled for knee replacement in May due to osteoarthritis, which has recently worsened, impacting her mobility and comfort. Physical Exam Vital Signs: Last Vital Signs Pulse 85 03/26/25 10:04 BP 122/88 03/26/25 10:04 Pulse Ox 96 03/26/25 10:04 Oxygen Delivery Method Room Air 03/26/25 10:04 BMI result Body Mass Index 33.8 Comfortable Neck supple no JVD. Lungs entry equal no rales. Heart S1-S2 heard no gallop or rub. Abdomen soft nontender. Neuro alert awake oriented. No asterixis. Extremities no edema. Results Reviewed Nephrology Results: Urine Protein Negative mg/dL (Neg-Trace) 06/12/24 Urine Creatinine 52.90 mg/dL 06/12/24 Renal US 06/20/24 Assessment & Plan Assessment & Plan (1) CKD (chronic kidney disease): Code(s): N18.9 - Chronic kidney disease, unspecified Category: Medical Qualifiers: Chronic kidney disease stage: stage 3 (moderate) Chronic kidney disease stage 3 subtype: stage 3b (GFR 30-44) Qualified Code(s): N18.32 - Chronic kidney disease, stage 3b (2) HTN (hypertension): Code(s): I10 - Essential (primary) hypertension Category: Medical Qualifiers: Hypertension type: primary hypertension Qualified Code(s): I10 - Essential (primary) hypertension (3) Multiple sclerosis: Code(s): G35 - Multiple sclerosis Category: Medical (4) Osteoarthritis: Code(s): M19.90 - Unspecified osteoarthritis, unspecified site Category: Medical Qualifiers: Laterality: unspecified laterality Osteoarthritis location: knee Osteoarthritis type: unspecified Qualified Code(s): M17.9 - Osteoarthritis of knee, unspecified (5) Neuropathy: Code(s): G62.9 - Polyneuropathy, unspecified Category: Medical (6) History of depression: Code(s): Z86.59 - Personal history of other mental and behavioral disorders Category: Medical Plan 58-year-old woman with a history of hypertension has sustained acute kidney injury. Acute kidney injury is most likely due to hypoperfusion from the combination of losartan, spironolactone and Celebrex. She developed diarrhea leading to dehydration which could be the precipitating event. Once diarrhea resolved and her volume status has been optimized renal function is gradually improving. She probably has underlying chronic kidney disease and baseline is yet to be determined. Ideally she should not be on a combination of losartan spironolactone and Celebrex. This combination certainly could lead to hypoperfusion. Upon discussing with her she does not want to stop Celebrex due to the severity of osteoarthritis. Creatiinine is up to 2.4 - Due to hypoperfusion ; USG - no obstruction She is should cut back on Celebrex! Taper spironolactone. Other possibility would be to discontinue losartan. No evidence of glomerular nephritis or interstitial disease based on UA Overall she is on multiple medications and we should be able to taper and discontinue some of her medications. I have discussed this with her. Over the course of several weeks , gradually taper gabapentin, nortriptyline, citalopram and Wellbutrin. 12/04/24; BP was rather low ; Stopped spironolactone 25 mg 01/01/25 Bp is elevated Restart Spironolactone at 12.5 mg daily Stay on low-sodium diet. Encouraged her to avoid pickle and pickle juice Watch blood pressure . Continue to hold Celebrex Encouraged her to increase p.o. fluid intake. Creatinine is at 1.6; Shall watch 03/26/25 Creatinine has improved to 1.41 Off NSAIDS/Chandler-2 inhibitors Watch renal functions. - Refrain from NSAIDs / Celebrex to protect kidney function. - Await knee replacement surgery and follow post-operative care instructions. - Maintain fluid intake and reduce salt consumption. No change in anti hypertensives since BP is well controlled - Contact my office if any new symptoms or concerns arise. Orders: Orders Basic Metabolic Panel 4 Months I10 - Essential (primary) hypertension, N18.32 - Chronic kidney disease, stage 3b Coding Level of Care Code Est Pt Level 4 (06842) Diagnoses Stage 3b chronic kidney disease N18.32 Chronic kidney disease stage: stage 3 (moderate) Chronic kidney disease stage 3 subtype: stage 3b (GFR 30-44) Primary hypertension I10 Hypertension type: primary hypertension Multiple sclerosis G35 Osteoarthritis of knee, unspecified laterality, unspecified osteoarthritis type M17.9 Laterality: unspecified laterality Osteoarthritis location: knee Osteoarthritis type: unspecified Neuropathy G62.9 History of depression Z86.59
--- OUTSIDE RECORDS SUMMARY | 2025-03-26 10:54 | XMS_ITS | Data Portability ---
Author Organization [place] - [facility] in [facility],, MARY FAY MD Address [address] [address] [place] [address] Care Team Providers Care Ore Roaster Name Role Phone TAIWOJM Primary Care Provider Assessment No assessment recorded. Plan of Treatment Reminders Order Date Submit Date Provider Last Modified By Organization Details Last Modified Time Details Appointments None recorded. Lab cytology report, thin prep, smear or scraping, cervical or vaginal 2023 024 [facility] (Centralized Electronic Ordering - All Locations), Patient Can Go To The Location Of Their Choice, [address] 4 12:06:49 pap test, thinprep, cervical 2021 022 [facility], Cytopathology Service, [address] [place], [address], 2 07:56:07 Referral None recorded. Procedures None recorded. Surgeries None recorded. Imaging US, pelvis, transabdo cresencio + transvagi nal 2024 025 [email or web address] 1 (Central Scheduling Radiology), [address] [place], [address], 5 13:38:54 MAMMO, screening , digital, bilateral - Breast Aspiratio n and/or Biopsy if needed 2023 024 [email or web address] [facility] Orders, [address], [address], [place], [address], 5 07:59:58 bone density 2023 024 [facility] Imaging Orders, [address], [address] [facility], [place], [address], 5 07:59:58 MAMMO, screening , digital, bilateral 2021 022 [facility] (Mammography), [address] [place], [address], 4 07:34:13 bone density 2021 022 [facility] (Ultrasound), [address] [place], [address], 4 07:30:16 Medication Orders progester one micronize d 200 mg capsule 2023 024 [facility]/Pharmacy #[id number], [address] [place], [address], 4 11:11:43 estradiol 1 mg tablet 2023 024 [facility] #[id number], [address] [place], [address], 4 11:11:43 estradiol 1 mg tablet 2022 023 [facility][id number], [address] [place], [address], 3 09:27:05 progester one micronize d 200 mg capsule 2022 023 [email or web address] 1 [facility]/Pharmacy #[id number], [address] [place], [address], 3 12:06:13 estradiol 0.01% (0.1 mg/gram) vaginal cream [address] [facility], [address] [place] [address], [place], [address], 3 09:16:59 estradiol 1 mg tablet 2021 022 [facility], [address] [place] [address], [address], 2 12:25:02 progester one micronize d 200 mg capsule 2021 022 [facility], [address] [place] [address], [address], 2 12:25:04 estradiol 1 mg tablet 2020 021 [facility], [address] [place] [address], [address], 11:15:37 progester one micronize d 200 mg capsule 2020 021 [facility], [address] [place] [address], [address], 11:15:37 Patient TargetsNo targets recorded. Patient Instructions Encounter Date Encounter Id Patient Instructions Last Modified By Organization Details Last Modified Time 02/16/2021 [id number] atrophic vaginitis: care instructions Not available 02/16/2021 11:15:35 multiple scleros is (MS): care instructions Not available 02/16/2021 11:15:35 This visit is a phone telehealth visit. The patient consented to the visit by phone. The patient was at home at the time of the call and the provider and patient were the only people on the line. I was at [address] [place] [address], [facility] [address], [place], at the time of the call. [...] her insurance, so she lost her energy. ___ Note from 09/2019: She is here for [...] been fatigued and mostly home bound since 2018 when she ran out of the meds. [...] 30 minutes Not available 02/17/2021 08:42:34 12/27/2021 [id number] atrophic vaginitis: care instructions Not available 12/27/2021 12:24:59 learning [...] time postmenopausally. Not available 12/27/2021 12:25:21 02/14/2023 [id number] This visit is a phone telehealth visit. The patient consented to the visit by phone. The patient was at home at the time of the call and the provider and patient were the only people on the line. I was at [address] [facility], [address], [place], [place], at the time of the call. [...] elects to continue. Her MS is stable. __ She is not on any MS meds [...] 20 minutes Not available 02/14/2023 09:27:25 02/12/2024 [id number] multiple scleros is (MS): care instructions Not available 02/12/2024 11:11:41 atrophic vaginitis: care instructions Not available 02/12/2024 11:11:08 learning [...] any time postmenopausally. Not available 02/12/2024 11:13:02 01/31/2025 [id number] atrophic vaginitis: care instructions Not available 01/31/2025 10:36:40 vaginal bleeding after menopause: care instructions Not available 01/31/2025 10:16:00 multiple scleros is (MS): care instructions Not available 01/31/2025 10:36:40 She is here for a complaint of postmenopausal bleeding, it started a few days ago, like a period with cramping and has resolved as of last night. She get a recent cortisone injection in her hip. She has not missed any HRT pills. Note from 03/06: She is here for annual exam, doing well on HRT and elects to continue. Her MS is stable. She has been falling a good amount, lately, though. She is not using a cane. She does have a handicap parking but does not use it because she feels other people need it more. Doing well on her HRT, elects to continue, We discussed the typical management of PMB. We discussed that sometimes PMB can be a harbinger of undisclosed endometrial cancer. She will get a pelvic sonogram, and then if the lining is very thin she may wait to see if the bleeding recurs, as it may be from the cortisone injection. Or, she can get an emb now, after the sono results even if thin. If the lining is thickened then she should get an emb now. This was discussed in detail, all questions answered. Face to face discussion, chart review and coordination of care: 25 minutes Not available 01/31/2025 10:37:04 Reason for Referral None Reported. Results Created Date Observation Date Name Description Value Unit Range Abnormal Flag Note LastModifiedBy Organization Detail LastModifiedTime 12/27/19 22 12/27/2021 PAP1C ASE [id number] ThinP rep Pap, Image d: NEGAT SWATI FOR SQUAM OUS INTRA EPITH ELIAL LESIO N AND MALIG BISMARK . Note: The Pap test is a scree nathanael test with an inher ent false negat swati rate. Autom ated presc reeni ng of all liqui d based speci mens is perfo rmed by the ThinP rep Imagi ng Syste m jenn s [facility] d. Mc Chaves r , [place]( CP) (Case elect denis jaimenancy samira d 01 11 2022) ADEQU ACY: Satis facto ry Endoc ervic al/tr ansfo rmati on zone compo nent absen t. SOURC E: ThinP rep Pap HPV IF Ascus : Refle x 16 and 18, Cervi barbie, Image d CLINI BARBIE INFOR MATIO N: HPV If Diagn osis of ASCUS . Z12.4 Not Available [facility], Cytopathology Service [address] [facility], [place], [address], 01/11/2022 16:51:37 02/12/20 24 02/15/2024 IGP, RFX APTIM A HPV ASCU diagnosis: Commen t NEGAT SWATI FOR INTRA EPITH ELIAL LESIO N OR MALIG BISMARK . Not Available [facility] ([facility]) [address] [facility], [place], [address], 02/15/2024 12:06:49 02/12/20 24 02/15/2024 IGP, RFX APTIM A HPV ASCU specimen adequacy: Commen t Satis facto ry for evalu ation . No endoc ervic al compo nent is ident ified . Not Available [facility] ([facility]) [address] [facility], [place], [address], 02/15/2024 12:06:49 02/12/20 24 02/15/2024 IGP, RFX APTIM A HPV ASCU clinician provided ICD10: Ana carlson Z12.4 Not Available [facility] ([facility]) [address] [place], [address], 02/15/2024 12:06:49 02/12/20 24 02/15/2024 IGP, RFX APTIM A HPV ASCU performed by: Justin Albert (ASCP ) Not Available [facility] ([facility]) [address] [facility], [place], [address], 02/15/2024 12:06:49 02/12/20 24 02/15/2024 IGP, RFX APTIM A HPV ASCU . . Not Available [facility] ([facility]) [address] [place], [address], 02/15/2024 12:06:49 02/12/20 24 02/15/2024 IGP, RFX [...] ts do occur . Not Available [facility] ([facility]) [address] [place], [address], 02/15/2024 12:06:49 02/12/20 24 02/15/2024 IGP, RFX APTIM A HPV ASCU test methodology: Ana carlson This liqui d based ThinP rep(R ) pap test was scree basil with the use of an image guide aditi pearl. Not Available [facility] ([facility]) [address] [facility], [place], [address], 02/15/2024 12:06:49 02/12/20 24 02/15/2024 IGP, RFX APTIM A HPV ASCU . Commen t The HPV DNA refle x crite melanie were not met with this speci men resul t there fore, no HPV testi ng was perfo rmed. Not Available [facility] ([facility]) [address] [facility], [place], [address], 02/15/2024 12:06:49 11/08/20 21 11/08/2021 MAMMO , diagn ostic , digit al, bilat eral No observ ation record ed. (Ultrasound) [address] [place], [address], 11/08/2021 14:39:41 11/15/19 22 11/15/2021 MAMMO , diagn ostic , digit al, bilat eral No observ ation record ed. [address] Diagnosit Imaging Dept [address] [place], [address], 11/16/2021 09:27:24 11/15/19 22 11/15/2021 US, rachelas t No observ ation record ed. [address] Diagnosit Imaging Dept [address] [place], [address], 11/16/2021 09:27:24 03/07/20 23 02/07/2023 MAMMO , diagn ostic , digit al, unila teral No observ ation record ed. [address] [facility]osit Imaging Dept [address] [place], [address], 03/07/2023 15:49:31 Result Notes None recorded. Problems Name Problem SNOMED Code Status Onset Date Resolution Date Notes Provider Name and Address Organization Details Recorded Time Essential hypertension 45836854 Active 2018 Patsy lemos [place] - [facility], 9 10:42:09 Multiple sclerosis 87114107 Active 1999 Patsy lemos [place] - [facility], 9 10:43:11 Diverticula of intestine 26920694 Active 2018 Patsy lemos [place] - [facility] in [facility], 9 10:50:51 Arthritis 2688393 Active 2018 Patsy lemos [place] - [facility] in [facility], 9 10:57:55 Menopausal syndrome 020170676 Active 2018 Mary Fay MD [address], [place], [address], [place] - [facility], 9 09:49:22 Atrophic vaginitis 30077847 Active 2018 Mary Fay MD [address], [place], [address], [place] - [facility], 9 11:07:33 Problem Notes None recorded. Procedures Surgical History Date Name Laterality Status Provider Name and Address Organization Details Recorded Time 4 Most Recent Mammogram completed Olga Gimenez in [facility], 01/31/2025 10:05:28 4 Most Recent Bone Density completed Olga Gimenez in [facility], 01/31/2025 10:05:42 3 Other completed Patsy Gimenez in [facility], 08/29/2019 10:53:05 9 Laparoscopy completed Patsy Gimenez in [facility], 08/29/2019 10:51:47 excision of bunion completed Patsy Gimenez in [facility], 08/29/2019 10:53:16 excision of lipoma completed Mary Fay MD [address], [place], [address], [place] - [facility], 09/26/2019 11:26:06 repair of meniscus completed Mary Fay MD [address] [facility],[address], [place], [address], [place] [facility], 02/16/2021 11:08:44 Imaging Results Imaging Date Name Status LastModified by [facility] Details LastModified Time 11/08/2021 MAMMO, diagnostic, digital, bilateral completed (Ultrasound) [address] [place], [address], 11/08/2021 14:39:41 11/15/2021 MAMMO, diagnostic, digital, bilateral completed [address] [facility] [address] [place], [address], 11/16/2021 09:27:24 11/15/2021 US, breast completed [address] [facility] [address] [place], [address], 11/16/2021 09:27:24 02/07/2023 MAMMO, diagnostic, digital, unilateral completed [address] [facility] [address] [place], [address], 03/07/2023 15:49:31 Procedure Notes None recorded. Medical Equipment None Reported. Allergies No known drug allergies Medications Name Sig Start Date Stop Date Status Note LastModified by Organization Details LastModified Time celecoxib 200 mg capsule TAKE 1 CAPSULE BY MOUTH EVERY DAY WITH FOOD FOR 90 DAYS active Not Available Not Available No t Available gabapentin 600 mg tablet TAKE 1 TABLET BY MOUTH TWICE A DAY FOR 90 DAYS active Not Available Not Available No t Available atorvastati n 20 mg tablet TAKE 1 TABLET BY MOUTH EVERY DAY active Not Available Not Available No t Available tizanidine 2 mg tablet TAKE 1 TABLET BY MOUTH 3 TIMES A DAY NEEDED active Not Available Not Available No t Available citalopram 40 mg tablet TAKE 1 TABLET BY MOUTH EVERY DAY FOR 90 DAYS active Not Available Not [...] TAKE 1 TABLET BY MOUTH EVERY DAY 01/31 completed Not Available Not Available Not Available amlodipine 2.5 mg tablet 02/16 completed [...] TAKE 1 TABLET BY MOUTH EVERY DAY (200 MG TOTAL)MAX DAILY AMOUNT: 200 MG 01/31 completed Not Available Not Available Not Available estradiol 1 mg tablet TAKE 1 TABLET [...] TAKE 1 TABLET BY MOUTH EVERY DAY 01/31 completed Not Available Not Available Not Available naproxen 500 mg tablet TAKE 1 [...] No t Available Vitals Date Recorded Body weight Body mass index (BMI) Body height Body temperature Heart rate Systolic blood pressure Diastolic blood pressure Provider Name and Address Organization Details Last Updated DateTime 2 36084.4 4 g 33.6 kg/m2 166.37 cm 97.4 [degF] 85 /min 160 mm[Hg] 97 mm[Hg] Imelda Enriquez [place] - [facility], 2 10:52:04 Date Recorded Body height Body mass index (BMI) Body weight Body temperature Heart rate Systolic blood pressure Diastolic blood pressure Provider Name and Address Organization Details Last Updated DateTime 4 166.37 cm 35 kg/m2 98553.0 5 g 97 [degF] 93 /min 140 mm[Hg] 84 mm[Hg] mikki Land [facility], 4 10:43:30 Date Recorded Body height Body mass index (BMI) Body weight Body temperature Heart rate Systolic blood pressure Diastolic blood pressure Provider Name and Address Organization Details Last Updated DateTime 5 166.37 cm 35.9 kg/m2 29062.0 1 g 97.5 [degF] 75 /min 140 mm[Hg] 68 mm[Hg] Olga Moramary Gimenez in [facility], 5 10:01:58 Social History Question Answer Notes LastModified by Organizat ion Details LastModified Time Tobacco Smoking Status Former Smoker Patsy Caceres [place] lemos in [facility], 08/29/2019 10:45:11 Do You Have An Advance Directive? Yes Information not available 08/29/2019 How Many Years Have You Consumed Alcohol? 35 Information not available 12/27/2021 What Is Your Level Of Caffeine Consumption? Occasional Information not available 08/29/2019 How Much Tobacco Do You Chew? None [email or web address] Information not available 08/29/2019 In The 14 [...] For COVID-19? No Information not available 02/16/2021 What Type Of Diet Are You Following? REGULAR Information not available 02/16/2021 Which Illicit Or Recreational Drugs Have You Used? None Information not available 08/29/2019 Do You Reside In Or Have You Traveled To An Area Where Ebola Virus Transmission Is Active? No Information not available 08/29/2019 Education 2 Year College Informatio n not available 08/29/2019 What Is The Highest Grade Or Level Of School You Have Completed Or The Highest Degree You Have Received? [id number] Information not available 12/27/2021 How Many Days In The Past Year Have You Had A Heavy Drinking Consumption (4+ Female, 5+ Male)? 0 Idyliski Information no t available 08/29/2019 Are There Any Guns Present In Your Home? Yes Gun Safe Information not available 08/29/2019 High Number Of Sexual Partners Yes Information not available 08/29/2019 To Which Gender Do You Self-identify? Female Information not available 08/29/2019 Marital Status Informatio n not available 08/29/2019 What Was The Date Of Your Most Recent Tobacco Screening? 01/31/2025 [email or web address] Information not available 01/31/2025 What Is Your Relationship Status? Information not available 12/27/2021 Seat Belts Used Routinely No Information not available 08/29/2019 Are You Sexually Active? Yes Information not available 02/12/2024 Smoke Alarm In Home Yes Information not available 08/29/2019 At What Age Did You Start Smoking Tobacco? 13 Information not available 08/29/2019 How Much Tobacco Do You Smoke? No Information not available 08/29/2019 General Stress Level High Information not available 02/12/2024 Do You Use Sunscreen Routinely? No Information not available 08/29/2019 How Many Years Have You Smoked Tobacco? 15 Information not available 08/29/2019 Have You Recently (within The Last 12 Weeks, Or During A Current ) Traveled To Or Lived In A Zika-affected Area? No Information not available 08/29/2019 How Many Days In The Past Year Have You Consumed 4 Or More Drinks? 0 Information no t available 12/27/2021 Sex: Female Functional Status Question Answer Note LastModified by Organizat ion Details LastModified Time Do you use any illicit or recreational drugs? No Information not available 12/27/2021 Do you or have you ever used any other forms of tobacco or nicotine? No Information not available 12/27/2021 What is your level of alcohol consumption? Occasional Information not available 08/29/2019 Do you or have you ever used smokeless tobacco? Never used smokeless tobacco Information not available 08/29/2019 Are you currently employed? No Information not available 12/27/2021 What is your occupation? unemployed fátima Information not available 02/16/2021 Do you or have you ever used e-cigarettes or vape? Never used electronic cigarettes Information not available 08/29/2019 What is your exercise level? None Information not available 12/27/2021 Mental Status Question Answer Note LastModified by Organization D etails LastModified Time Do you feel stressed (tense, restless, nervous, or anxious, or unable to sleep at night)? [id number] Information not available 12/27/2021 Family History Relationship Description Onset Age of this Age Resolved Age Notes LastModified by Organization Details LastModified Time Mother Essential hypertension [email or web address] Not available 10:44:06 Father Osteoporosis [email or web address] Not avai lable 01/31/2025 10:04:22 Notes:Not in contact w/fathe r Medical History Condition Response Anesthesia complications N High Blood Pressure Y Candidate for MyRisk panel N Autoimmune Condition Y Kidney or Bladder Problems N Thyroid Problems N Depression Y Lung Disease N GI Problems Y Defects or Inherited Disease N Anemia Y History of Ovarian Cancer N History of Breast Cancer N RADHA exposure N BRCA testing in past N Osteopenia Y Psychiatric Illness N Anxiety Disorder Y Diabetes N Arthritis Y Headaches or Migraines N Infertility N Asthma N History of Cancer N Endometriosis N Hepatitis N Heart Disease N Hypertension Y Osteoporosis N Gynecological History Statement/Question Response Menses Monthly N If Post Menopausal, Age at Menopause 48 Age at Menarche 10 Most Recent Mammogram 08/21/2024 Most Recent Bone Density 08/21/2024 Hormone Replacement Therapy Yes Obstetrics History GPAL:G 0 P 0 0 0 0 Immunizations Vaccine Type Date Status Note Provider Nam e and Address Organization Details Recorded Time Influenza, split virus, quadrivalent, preservative 9 completed ETHAN Champion in [facility], 08/29/2019 10:41:51 Influenza, split virus, quadrivalent, preservative 0 completed ETHAN Ervin in [facility], 02/16/2021 10:57:04 Influenza, split virus, quadrivalent, preservative 1 completed ETHAN Ervin in [facility], 12/27/2021 10:54:01 Past Encounters Encounter ID Performer Location Encounter Start Date Encounter Closed Date Diagnosis/Indication Diagnosis SNOMED-CT Code Diagnosis ICD10 Code Diagnosis Note [id number] MD MARY Sim MD [address] [place] [address] [place] [address] 08/29/2019 10:27:41 08/29/2019 13:25:05 Amenorrhea 86685621 N91.2 Menopausal syndrome 1237 56418 N95.1 Multiple sclerosis 35496 007 G35 Essential hypertension 56651181 I10 [id number] MD MARY Sim MD [address] [place] [address] 09/26/2019 10:44:24 09/26/2019 12:58:41 Specialized medical examination 19288437 Z01.419 Screening for malignant neoplasm of rectum 067757227 Z12.12 Screening mammography 24 171686 Z12.31 Atrophic vaginitis 32463 000 N95.2 [id number] MD MARY Sim MD [address] [place] [phone] 02/16/2021 10:52:23 02/17/2021 10:31:08 Menopausal syndrome 426036060 N95.1 Multiple sclerosis 37322 007 G35 Atrophic vaginitis 61468 000 N95.2 [id number] MD MARY Sim MD [address] [place] [address] 12/27/2021 10:48:59 12/27/2021 13:38:57 Screening for malignant neoplasm of cervix 333738319 Z12.4 Screening mammography 24 375031 Z12.31 Screening for osteoporosis 329907536 N95.8 Menopausal syndrome 1237 22195 N95.1 Atrophic vaginitis 54719 000 N95.2 [id number] MD MARY Sim MD [address] [place] [address] 02/14/2023 09:14:56 02/14/2023 10:08:46 Menopausal syndrome 398490842 N95.1 [id number] MD MARY Sim MD [address] [place] [address] [address] [place] [address] 02/12/2024 10:40:15 02/12/2024 13:17:05 Screening for malignant neoplasm of cervix 653329107 Z12.4 Screening mammography 24 375439 Z12.31 Screening for osteoporosis 913492554 N95.8 Multiple sclerosis 88636 007 G35 Menopausal syndrome 1237 91485 N95.1 [id number] MD MARY Sim MD [address] [facility] [place] [address] 01/31/2025 09:56:03 01/31/2025 11:53:42 Postmenopausal bleeding 60546554 N95.0 Multiple sclerosis 61011 007 G35 Atrophic vaginitis 28859 000 N95.2 Health Concerns Section Related Observation LastModified by Organization Detai ls LastModified Time None Recorded Concern Status LastModified by Organization Details LastModified Time None Recorded Advance Directives Directive Y: Payers Encounter Date Sequence Insurance Name Policy Number Policy Dias Covered Member ID Dias Member ID Guarantor Name 02/16/2021 1 [place] PPO) [id number] Anabel Pawlin [id number] Anabel Pawlin 12/27/2021 1 [place]) [id number] Anabel Pawlin [id number] Anabel Pawlin 02/14/2023 1 [place]) [id number] Anabel Pawlin [id number] Anabel Pawlin 02/12/2024 1 [place]PO) [id number] Anabel Pawlin [id number] Anabel Pawlin 01/31/2025 1 [place] PPO) [id number] Anabel Pawlin [id number] Anabel Pawlin Notes Date Note Type Note Provider Name and Address Organization Details Recorded Time 02/16/2021 text/html This visit is a phone telehealth visit. The patient consented to the visit by phone. The patient was at home at the time of the call and the provider and patient were the only people on the line. I was at [address] [facility], [address], [place], at the [...] at this time. Mary Fay MD [address] [facility] [address], [place], [address], [employer] - [facility], 02/17/2021 08:43:48 12/27/2021 text/html She is here for annual exam, doing well on HRT and elects to continue. Her MS is stable. ____ Not from 09/2019: She is here for annual exam, started HRT 3 to 4 weeks ago, she notes that her hot flashes are mouch improved and she is sleeping better. I feel better than I have in years! Very little to no MS symptoms at this time. Mary Fay MD [address] [facility],[address], [place], [address], [employer] - [facility], 12/27/2021 12:26:09 02/14/2023 text/html This visit is a phone telehealth visit. The patient consented to the visit by phone. The patient was at home at the time of the call and the provider and patient were the only people on the line. I was at [address] [facility], [address], [place], at the [...] MS is stable. Mary Fay MD [address], [place], [address], [employer] [facility], 02/14/2023 09:47:07 02/12/2024 text/html She is here for annual exam, doing well on HRT and elects to continue. Her MS is stable.She has been falling a good amount, lately, though. She is not using a cane. She does have a handicap parking but does not use it because she feels other people need it more. Mary Fay MD [address], [place], [address], [employer] [facility], 02/12/2024 11:13:28 01/31/2025 text/html She is here for a complaint of postmenopausal bleeding, it started a few days ago, like a period with cramping and has resolved as of last night. She get a recent cortisone injection in her hip. She has not missed any HRT pills. Note from 03/06: She is here for annual exam, doing well on HRT and elects to continue. Her MS is stable.She has been falling a good amount, lately, though. She is not using a cane. She does have a handicap parking but does not use it because she feels other people need it more.Doing well on her HRT, elects to continue, Mary Fay MD [address], [place], [address], [employer] [facility], 01/31/2025 10:37:19 OBGyn Episode No OBEpisode recorded.
--- OUTSIDE RECORDS SUMMARY | 2025-03-26 10:54 | XMS_ITS | Clinical Summary ---
Author Organization [address] [facility] Address [address] [place] [address] Phone Care Team Providers Care Director Of Head Start Name Role Phone Jm Maravilla DO Primary Care Provider [phone] Allergies No known active allergies Medications amLODIPine [...] 2 (two) times a day. Active L norgest/e.estra dioL-e.estrad (SEASONIQUE) 0.15 mg-30 mcg (84)/10 mcg (7) [...] mg tablet TAKE 1 TABLET DAILY Active AMLODIPINE-ATOR VASTATIN ORAL Take by mouth. - Oral Active nortriptyline HCl (NORTRIPTYLINE ORAL) Take 1 Tab by mouth 2 times daily. Active celecoxib (CELEBREX ORAL) Take 1 Tab by mouth daily. Active modafiniL (PROVIGIL) 200 mg tabletIndicatio ns:Multiple sclerosis ([facility] V24, [facility] V28) Take 1 tablet (200 mg total) by mouth 1 (one) time each day. Max Daily Amount: 200 mg 30 each 5 5 06/04/20 25 Active Active Problems Problem Noted Date Diagnosed Date Class 2 obesity with body ma ss index (BMI) of 35.0 to 35.9 in adult 10/02/2024 Lipoma 01/08/2024 HTN (hypertension) 06/12/2020 Arthritis 12/28/2017 Depression 12/28/2017 Multiple sclerosis ([facility] V24, [facility] V28) Surgical History Surgery Date Site/Laterality Comments EAR RECONSTRUCTION PROCEDURE:EAR RECONSTRUCTION BUNIONECTOMY PROCEDURE:BUNIONECTOMY EXPLORATORY LAPAROTOMY W/ ISATU WEL RESECTION PROCEDURE:EXPLORATORY LAPAROTOMY W/ BOWEL RESECTION HERNIA REPAIR PROCEDURE:HERNIA REPAIR KNEE CARTILAGE SURGERY Left PROCEDURE:KNEE CARTILAGE SURGERY Medical History Medical History Date Comments Hypertension DX:Hypertension Depression DX:Depression MS (multiple sclerosis) ([facility] V24, [facility] V28) DX:MS (multiple sclerosis) ( [facility]) Arthritis DX:Arthritis Bursitis DX:Bursitis Family History Medical [...] Description 03/31/2025 10:00 AM EDT Office Visit [facility] [address] [facility] [address] [place] [address] Lazaro Moore MD [address] [place] [address] Health Maintenance Due Date Last Done Comments Hepatitis B Vaccines (1 of 3 - 19+ 3-dose series) 1984 Cervical Cancer Screening: Pap Smear 1986 Pneumococcal Vaccine: 50+ Years (1 of 1 - PCV) 2015 Zoster Vaccines (1 of 2) 2015 Depression Screening 10/22/2022 HIV Screening 10/22/2022 Hepatitis C Screening 10/22/2022 Medicare Annual Wellness Visit 10/22/2022 Social Influencers of Health Screening 10/22/2022 COVID-19 Vaccine (1 - 2023-25 season) 2024 Influenza Vaccine (Season Ended) 2025 11/07/2023, 10/01/2021, 08/25/2021, Additional history exists Colorectal Cancer Screening: FIT-DNA (Cologuard) 09/02/2025 09/02/2022, 09/02/2022, 09/02/2022 Hypertension/CHF/CAD Annual BMP Blood Test 01/20/2026 01/20/2025 Breast Cancer Screening 08/13/2026 08/13/20 24, 02/08/2023, 11/08/2021, Additional history exists Cholesterol Screening (Lipid Panel) 01/20/2030 01/20/2025, 10/31/2024 DTaP,Tdap,and Td Vaccines (2 - Td or Tdap) 01/20/2035 01/20/2025 RSV Immunization Adult Patients (1 - 1-dose 75+ series) 2040 HIB [...] age to complete this topic Meningococcal B Vaccine Aged Out No l onger eligible based on patient's age to complete [...] Procedure Name Priority Date/Time Associated Diagnosis Comments CBC WITH AUTO DIFFERENTIAL Routine 01/20/2025 1:30 PM EDT HLD (hyperlipidemia) MS (congenital mitral stenosis) Obesity HTN (hypertension) HEMOGLOBIN A1C Routine 01/20/2025 1:30 PM EDT HLD (hyperlipidemia) MS (congenital mitral stenosis) Obesity HTN (hypertension) Abnormal finding of blood chemistry, unspecified COMPREHENSIVE METABOLIC PANEL Routine 01/20/2025 1:30 PM EDT HLD (hyperlipidemia) MS (congenital mitral stenosis) Obesity HTN (hypertension) CBC AND DIFFERENTIAL Routine 01/20/2025 1:30 PM EDT HLD (hyperlipidemia) MS (congenital mitral stenosis) Obesity HTN (hypertension) THYROID STIMULATING HORMONE Routine 01/20/2025 1:30 PM EDT HLD (hyperlipidemia) MS (congenital mitral stenosis) Obesity HTN (hypertension) CREATINE KINASE Routine 01/20/2025 1:30 PM EDT HLD (hyperlipidemia) MS (congenital mitral stenosis) Obesity HTN (hypertension) LIPID PANEL WITH REFLEX TO DIRECT LDL Routine 01/20/2025 1:30 PM EDT HLD (hyperlipidemia) MS (congenital mitral stenosis) Obesity HTN (hypertension) GARRISON SCREENING DIGITAL Routine 08/13/2024 1:16 PM EDT Encounter for screening mammogram for malignant neoplasm of breast FIT-DNA Routine 09/02/2022 from Last 3 Months or Most Recently Relevant to Health Maintenance Results * (ABNORMAL) Lipid panel with reflex to direct LDL (01/20/2025 1:30 PM EDT) Cholesterol 203(H) 0 - 200 mg/dL LAB CHEMISTRY METHOD 01/20/2025 3:45 PM EDT [facility] Triglycerides 80 0 - 150 mg/dL LAB CHEMISTRY METHOD 01/20/2025 3:45 PM EDT [facility] HDL 123 >=40 mg/dL LAB CHEMISTRY METHOD 01/20/2025 3:45 PM EDT [facility] LDL Calculated 64 0 - 100 mg/dL LAB CHEMISTRY METHOD 01/20/2025 3:45 PM EDT [facility] VLDL Cholesterol Reji 16 mg/dL LAB CHEMISTRY METHOD 01/20/2025 3:45 PM EDT [facility] Non HDL Chol. (LDL+VLDL) 80 <145 mg/dL LAB CHEMISTRY METHOD 01/20/2025 3:45 PM EDT [facility] Chol/HDL Ratio 1.7 0.0 - 4.4 LAB CHEMISTRY METHOD 01/20/2025 3:45 PM EDT [facility] Blood Venous blood specimen / Unknown Venipuncture / Unknown 01/20/2025 1:30 PM EDT 01/20/2025 1:[address] [facility] LAB BLOOD ORDERABLES Final Resul t [facility] [address] [place] [address], * (ABNORMAL) CBC auto differential (01/20/2025 1:30 PM EDT) WBC 9.1 4.8 - 10.8 K/mcL LAB HEMETOLOGY METHOD 01/20/2025 2:50 PM EDT [facility] RBC 3.70(L) 3.80 - 4.80 M/mcL LAB HEMETOLOGY METHOD 01/20/2025 2:50 PM EDT [facility] Hemoglobin 11.1(L) 11.5 - 16.0 g/dL LAB HEMETOLOGY METHOD 01/20/2025 2:50 PM EDT [facility] Hematocrit 33.2(L) 35.0 - 47.0 % LAB HEMETOLOGY METHOD 01/20/2025 2:50 PM EDT [facility] MCV 90.0 79.0 - 98.0 FL LAB HEMETOLOGY METHOD 01/20/2025 2:50 PM EDT [facility] MCH 30.1 27.0 - 32.0 pcg LAB HEMETOLOGY METHOD 01/20/2025 2:50 PM EDT [facility] MCHC 33.4 32.0 - 37.0 g/dL LAB HEMETOLOGY METHOD 01/20/2025 2:50 PM EDT [facility] RDW 13.0 11.0 - 15.0 % LAB HEMETOLOGY METHOD 01/20/2025 2:50 PM EDT [facility] Platelets 334 130 - 400 K/mcL LAB HEMETOLOGY METHOD 01/20/2025 2:50 PM EDT [facility] MPV 9.4 7.0 - 11.0 FL LAB HEMETOLOGY METHOD 01/20/2025 2:50 PM EDT [facility] NRBC 0.0 <1.0 % LAB HEMETOLOGY METHOD 01/20/2025 2:50 PM EDT [facility] NRBC Absolute 0.00 <0.10 K/mcL LAB HEMETOLOGY METHOD 01/20/2025 2:50 PM EDT [facility] Neutrophils Relative 70.6 % LAB HEMETOLOGY METHOD 01/20/2025 2:50 PM EDT [facility] Lymphocytes Relative 17.5 % LAB HEMETOLOGY METHOD 01/20/2025 2:50 PM T [facility] Monocytes Relative 10.8 % LAB HEMETOLOGY METHOD 01/20/2025 2:50 PM EDT [facility] Eosinophils Relative 0.2 % LAB HEMETOLOGY METHOD 01/20/2025 2:50 PM EDT [facility] Basophils Relative 0.2 % LAB HEMETOLOGY METHOD 01/20/2025 2:50 PM EDT [facility] Immature Granulocytes Relative 0.7 % LAB HEMETOLOGY METHOD 01/20/2025 2:50 PM EDT [facility] Neutrophils Absolute 6.42 1.50 - 7.00 K/mcL LAB HEMETOLOGY METHOD 01/20/2025 2:50 PM EDT [facility] Lymphocytes Absolute 1.59 1.00 - 5.00 K/mcL LAB HEMETOLOGY METHOD 01/20/2025 2:50 PM EDT [facility] Monocytes Absolute 0.98 0.20 - 1.00 K/mcL LAB HEMETOLOGY METHOD 01/20/2025 2:50 PM EDT [facility] Eosinophils Absolute 0.02 0.00 - 0.50 K/[facility] LAB HEMETOLOGY METHOD 01/20/2025 2:50 PM EDT [facility] Basophils Absolute 0.02 0.00 - 0.20 K/[facility] LAB HEMETOLOGY METHOD 01/20/2025 2:50 PM EDT [facility] Immature Granulocytes Absolute 0.06(H) 0.00 - 0.03 K/[facility] LAB HEMETOLOGY METHOD 01/20/2025 2:50 PM EDT [facility] Blood Venous blood specimen / Unknown Venipuncture / Unknown 01/20/2025 1:30 PM EDT 01/20/2025 1:[address] [facility] LAB BLOOD ORDERABLES Final Resul t [facility] [address] [place] [address], * Thyroid stimulating hormone (01/20/2025 1:30 PM EDT) TSH 1.47 0.40 - 4.00 mcIU/mL LAB CHEMISTRY METHOD 01/20/2025 3:34 PM EDT [facility] Blood Venous blood specimen / Unknown Venipuncture / Unknown 01/20/2025 1:30 PM EDT 01/20/2025 1:[address] [facility] LAB BLOOD ORDERABLES Final Resul t Performing Organization Address [facility]/ZIP Co de Phone Number [facility] [address] [place] [address], [place] [phone] * Hemoglobin A1c (01/20/2025 1:30 PM EDT) Pathologist [facility] Hemoglobin A1C 5.8 <6.5 % LAB CHEMISTRY METHOD 01/20/2025 9:39 PM EDT [facility] Mean Bld Glu Estim. 120 mg/dL LAB CHEMISTRY METHOD 01/20/2025 9:39 PM EDT [facility] Blood Venous blood specimen / Unknown Venipuncture / Unknown 01/20/2025 1:30 PM EDT 01/20/2025 1:[address] [facility] LAB BLOOD ORDERABLES Final Resul t Performing Organization Address [facility]/ZIP Co de Phone Number [facility] [address] [place] [address], [place] [phone] * Creatine kinase (01/20/2025 1:30 PM EDT) Pathologist [facility] Total CK 155 22 - 269 unit/L LAB CHEMISTRY METHOD 01/20/2025 3:45 PM EDT [facility] Blood Venous blood specimen / Unknown Venipuncture / Unknown 01/20/2025 1:30 PM EDT 01/20/2025 1:[address] [facility] LAB BLOOD ORDERABLES Final Resul t Performing Organization Address City/[facility]/ZIP Co de Phone Number [facility] [address] [place] [address], [place] [phone] * (ABNORMAL) Comprehensive metabolic panel (01/20/2025 1:30 PM EDT) [facility] Sodium 137 133 - 145 mmol/L LAB CHEMISTRY METHOD 01/20/2025 3:45 PM [facility] Potassium 4.0 3.5 - 5.5 mmol/L LAB CHEMISTRY METHOD 01/20/2025 3:45 PM [facility] Chloride 104 96 - 110 mmol/L LAB CHEMISTRY METHOD 01/20/2025 3:45 PM [facility] CO2 25 21 - 32 mmol/L LAB CHEMISTRY METHOD 01/20/2025 3:45 PM [facility] Anion Gap 8 3 - 11 LAB CHEMISTRY METHOD 01/20/2025 3:45 PM [facility] Glucose 79 70 - 100 mg/dL LAB CHEMISTRY METHOD 01/20/2025 3:45 PM [facility] BUN 35(H) 5 - 25 mg/dL LAB CHEMISTRY METHOD 01/20/2025 3:45 PM [facility] Creatinine 1.37(H) 0.50 - 1.10 mg/dL LAB CHEMISTRY METHOD 01/20/2025 3:45 PM [facility] eGFR 45(L) >=60 mL/min/1. 73m2 LAB CHEMISTRY METHOD 01/20/2025 3:45 PM [facility] Comment:Calculation based on the??Chronic Kidney Disease Epidemiology Collaboration (CKD-EPI) equation refit??without adjustment for race. BUN/Creatinine Ratio 25.5 LAB CHEMISTRY METHOD 01/20/2025 3:45 PM [facility] Calcium 9.3 8.5 - 10.5 mg/dL LAB CHEMISTRY METHOD 01/20/2025 3:45 PM [facility] AST (SGOT) 22 10 - 42 unit/L LAB CHEMISTRY METHOD 01/20/2025 3:45 PM [facility] ALT (SGPT) 34 10 - 60 unit/L LAB CHEMISTRY METHOD 01/20/2025 3:45 PM [facility] Alkaline Phosphatase 92 42 - 121 unit/L LAB CHEMISTRY METHOD 01/20/2025 3:45 PM EDT [facility] Total Protein 7.0 6.0 - 8.0 g/dL LAB CHEMISTRY METHOD 01/20/2025 3:45 PM EDT [facility] Albumin 3.8 3.2 - 5.0 g/dL LAB CHEMISTRY METHOD 01/20/2025 3:45 PM EDT [facility] Total Bilirubin 0.5 0.0 - 1.4 mg/dL LAB CHEMISTRY METHOD 01/20/2025 3:45 PM EDT [facility] Blood Venous blood specimen / Unknown Venipuncture / Unknown 01/20/2025 1:30 PM EDT 01/20/2025 1:[address] [facility] LAB BLOOD ORDERABLES Final Resul t [facility] [address] [place] [address], * GARRISON SCREENING DIGITAL (08/13/2024 1:16 PM EDT) Anatomical Region Laterality Modality Mammography 08/12/2024 1:05 PM EDT Narrative 08/13/2024 1:16 PM EDT [facility] Diagnostic Imaging Department [address] [place] [address] Patient: ??ANABEL TURPIN ?/Age/Sex: 1965 - 58 - F Unit#: ??[id number] ? Location/Status: ??SPDIMAM/REG CLI ? Mnemonic/Ordering Site: ??DIGSC/SPMAM Ordering Physician: ??JM MARAVILLA MD [facility] Screening Digital - 08/12/24 - 1322 Report Status:Signed EXAM: [facility] Screening Digital EXAM DATE AND TIME: 08/12/2024 1:23 PM HISTORY: ??Screening. COMPARISON: ??02/07/23, 11/15/21, 11/08/21 TECHNIQUE: Bilateral digital breast tomosynthesis was performed in the CC and MLO projections. Computer aided detection with Budge 3D 3.1 was employed. TISSUE DENSITY: b. [...] Mammogram performed at [facility] [place] [address] Dictating Physician: ??RENNY TORRES MD Electronically Signed by: ??RENNY TORRES MD Dic Date/Time: ??08/13/24 1316 Sign date/Time: ??08/13/24 1316 Procedure Note Renny Torres MD - 09/10/2024 [facility] Diagnostic Imaging Department [address] [place] [id number] Patient: ANABEL TURPIN /Age/Sex: 1965 - 58 - F Unit#: [id number] Location/Status: SPDIMAM/REG CLI Mnemonic/Ordering Site: [facility] Ordering Physician: JM MARAVILLA MD [facility] Screening Digital - 08/12/24 - 1322 Report Status:Signed EXAM: [facility] Screening Digital EXAM DATE AND TIME: 08/12/2024 1:23 PM HISTORY: Screening. COMPARISON: 02/07/23, 11/15/21, 11/08/21 TECHNIQUE: Bilateral digital breast tomosynthesis was performed in the CCand MLO projections. Computer aided detection with Budge 3D 3.1was employed. TISSUE DENSITY: b. There [...] Mammogram performed at [place] [address] Dictating Physician: RENNY TORRES MD Electronically Signed by: RENNY TORRES MD Dic Date/Time: 08/13/24 1316 Sign date/Time: 08/13/24 1316 us Jm Maravilla DO IM BI PROCEDURES Final Resul t * Hm FIT-DNA (Cologuard) (09/02/2022) Colorectal Cancer Screening: FIT-DNA (Cologuard) abstracted ,normal us Historical Provider MD HEALTH MAINTENANCE Final Result from Last 3 Months or Most Recently Relevant to Health Maintenance Insurance [employer] - [place] MEDICARE ADVANTAGE Care Teams Director Of Head Start Relationship Specialty Start Date End Date Jm Maravilla DO [address] [place] [phone] PCP - General 01/27/09
--- OUTSIDE RECORDS SUMMARY | 2025-03-26 10:54 | XMS_ITS | Clinical Summary ---
Author Organization [facility] Address [address] [place] [address] Care Team Providers Care Continuous Churn Buttermaker Name Role Phone ReynadylonWiliam cuevas Primary Care Provider [phone] Allergies No known active allergies Medications Medication [...] age to complete this topic Care Teams Continuous Churn Buttermaker Relationship Specialty Start Date End Date Wiliam Ching DO [address] [place] [address] [address] [place] [address] PCP - General Internal Medicine 09/14/18
== END 2025-03-26 10:17 | disposition home or self-care (01) ==
LOC: HO.HKAS 10:02
PROVIDERS: PCP Internal Medicine; Visit Provider Internal Medicine Hypertension Specialist
DX: N18.32 Chronic kidney disease, stage 3b (principal); I10 Essential (primary) hypertension; G35 Multiple sclerosis; M17.9 Osteoarthritis of knee, unspecified; G62.9 Polyneuropathy, unspecified; Z86.59 Personal history of other mental and behavioral disorders
CPT/HCPCS: 99214

== ENCOUNTER 2025-07-30 09:41 | Outpatient (AMB) | payer BC, SELFPAY ==
[2025-07-30 09:53] VITALS: BP 122/88; PULSE 102; O2SAT 97; BMI 32.9
--- NOTE | 2025-07-30 09:53 | HO.NEPHOV_ITS ---
Vital Signs 07/30/25 09:53 Height 5 ft 7 in Weight 210 lb BMI 32.9 BP 122/88 Blood Pressure Location Lt brachial Position Sitting Pulse 102 H Pulse Source Pulse Oximeter Pulse Oximetry (%) 97 Oxygen Delivery Method Room Air Intake Visit Reasons: Jul follow-up w/labs-Conf Reinforcing Steel Worker Required: No Accompanied by: Self / Same As Patient Allergies amlodipine Allergy (Unknown, Verified 07/30/25 09:56) Swelling Medication List - Last Reconciled 07/30/25 by James Ansari MD atorvastatin 20 mg PO DAILY bupropion HCl XL 150 mg PO DAILY citalopram 40 mg PO DAILY estradiol 1 mg PO DAILY losartan 25 mg PO DAILY metoprolol succinate ER 25 mg PO DAILY nortriptyline 10 mg PO DAILY progesterone micronized 200 mg PO BEDTIME spironolactone 12.5 mg PO DAILY tizanidine 4 mg PO TID tizanidine 2 mg PO TID HPI Comments Details: Anabel churchill 58-year-old woman with a history of hypertension for almost 5 years. She has been on spironolactone 50 mg, metoprolol 25 mg, losartan 25 mg once a day. There has been fluctuations in her blood pressure. Apparently she has been on spironolactone for a longer period of time and this was initially prescribed for the treatment of acne. She had Holter monitoring done few years ago and metoprolol was started after the Holter monitoring. Against this background about a month ago she developed diarrhea and p.o. intake was poor. She developed acute kidney injury. While this episode happened she was on above medications along with Celebrex 200 mg once a day. She has been on Celebrex for several years and prior to that she was on several other NSAIDs for osteoarthritis. Once the episode of diarrhea resolved serum creatinine decreased from 2.0 down to 1.35 over the last several weeks. She has not changed any of her medications despite the advice of discontinuing Celebrex from her PCP. Other ongoing medical problems significant for multiple sclerosis. This is in remission. She follows with neurologist. She has a history of depression. She is on both Wellbutrin and citalopram 40 mg a day. She has been on this for a long time History of significant osteoarthritis she has been on NSAIDs for a long time. 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 History of neuropathy. She is on gabapentin 600 mg b.i.d. along with the nortriptyline. Again she has been on this for several years. She has 3 siblings no history of hypertension. Grandmother had end stage renal disease. No history of smoking cigarettes or alcohol abuse. She uses marijuana She is not on a salt restricted diet. In fact she uses plenty of pickle and sometimes drinks pickle juice 07/24/24 ; She has cut back on Aldactone ; Still on Celebrex 200 mg 12/04/24 ; BP has been low ;Feels light headed ; Off NSAIDS 01/01/25 ;Off Aldactone ;BP elevated today ;Has trouble sleeping 03/26/25 59-year-old female presenting with medication review and management of chronic conditions. Her essential hypertension has been better managed with current medication, showing stable blood pressure levels. She reports no adverse symptoms such as lightheadedness, headaches, nausea, vomiting, or leg swelling. Currently on 12.5 mg of spironolactone Her chronic kidney disease is actively monitored, with improved creatinine levels and stable potassium, facilitated by modifications in her medication regimen. Depression is managed with Citalopram 40 mg, and current symptoms suggest stability in her mood. The patient is also scheduled for knee replacement in May due to osteoarthritis, which has recently worsened, impacting her mobility and comfort. 07/30/25 The patient is a 59-year-old female presenting with hypertension management and postoperative care following knee replacement surgery. Initial surgery was delayed due to hypotension from antihypertensive medications. Dizziness and instability were noted, linked to morning medication intake. Medication schedule adjusted: spironolactone and metoprolol in the morning, losartan in the evening. No current lightheadedness; adequate hydration maintained. Blood pressure fluctuates between 101/66 mmHg and 171/102 mmHg. Post-surgery, no pain medications used; no leg swelling observed. [facility] Surgical History (Updated 07/30/25 @ 09:56 by ANGELICA Rivers) History of left knee replacement (~05/2025) Physical Exam Vital Signs: Last Vital Signs Pulse 102 H 07/30/25 09:53 BP 122/88 07/30/25 09:53 Pulse Ox 97 07/30/25 09:53 Oxygen Delivery Method Room Air 07/30/25 09:53 BMI result Body Mass Index 32.9 Comfortable Neck supple no JVD. Lungs entry equal no rales. Heart S1-S2 heard no gallop or rub. Abdomen soft nontender. Neuro alert awake oriented. No asterixis. Extremities no edema. Results Reviewed Results Reviewed: 07/22/2025. BUN 28 creatinine 1.48. Nephrology Results: Urine Protein, (Neg-Trace) Negative mg/dL 06/12/24 Urine Creatinine 52.90 mg/dL 06/12/24 Renal US 06/20/24 Assessment & Plan Assessment & Plan (1) CKD (chronic kidney disease): Code(s): N18.9 - Chronic kidney disease, unspecified Category: Medical Qualifiers: Chronic kidney disease stage: stage 3 (moderate) Chronic kidney disease stage 3 subtype: stage 3b (GFR 30-44) Qualified Code(s): N18.32 - Chronic kidney disease, stage 3b (2) HTN (hypertension): Code(s): I10 - Essential (primary) hypertension Category: Medical Qualifiers: Hypertension type: primary hypertension Qualified Code(s): I10 - Essential (primary) hypertension (3) Multiple sclerosis: Code(s): G35 - Multiple sclerosis Category: Medical (4) Osteoarthritis: Code(s): M19.90 - Unspecified osteoarthritis, unspecified site Category: Medical Qualifiers: Laterality: unspecified laterality Osteoarthritis location: knee Osteoarthritis type: unspecified Qualified Code(s): M17.9 - Osteoarthritis of knee, unspecified (5) Neuropathy: Code(s): G62.9 - Polyneuropathy, unspecified Category: Medical (6) History of depression: Code(s): Z86.59 - Personal history of other mental and behavioral disorders Category: Medical Plan 58-year-old woman with a history of hypertension has sustained acute kidney injury. Acute kidney injury is most likely due to hypoperfusion from the combination of losartan, spironolactone and Celebrex. She developed diarrhea leading to dehydration which could be the precipitating event. Once diarrhea resolved and her volume status has been optimized renal function is gradually improving. She probably has underlying chronic kidney disease and baseline is yet to be determined. Ideally she should not be on a combination of losartan spironolactone and Celebrex. This combination certainly could lead to hypoperfusion. Upon discussing with her she does not want to stop Celebrex due to the severity of osteoarthritis. Creatiinine is up to 2.4 - Due to hypoperfusion ; USG - no obstruction She is should cut back on Celebrex! Taper spironolactone. Other possibility would be to discontinue losartan. No evidence of glomerular nephritis or interstitial disease based on UA Overall she is on multiple medications and we should be able to taper and discontinue some of her medications. I have discussed this with her. Over the course of several weeks , gradually taper gabapentin, nortriptyline, citalopram and Wellbutrin. 12/04/24; BP was rather low ; Stopped spironolactone 25 mg 01/01/25 Bp is elevated Restart Spironolactone at 12.5 mg daily Stay on low-sodium diet. Encouraged her to avoid pickle and pickle juice Watch blood pressure . Continue to hold Celebrex Encouraged her to increase p.o. fluid intake. Creatinine is at 1.6; Shall watch 03/26/25 Creatinine has improved to 1.41 Off NSAIDS/Chandler-2 inhibitors Watch renal functions. - Refrain from NSAIDs / Celebrex to protect kidney function. - Await knee replacement surgery and follow post-operative care instructions. - Maintain fluid intake and reduce salt consumption. No change in anti hypertensives since BP is well controlled - Contact my office if any new symptoms or concerns arise. 07/30/25 1. Hypertension - Continue current antihypertensive regimen. - Regular home blood pressure monitoring. Stay on low salt diet 2.CKD 3 Creatinine stable at 1.48 Most likely has hypertensine ne[hrosclerosis Fluctuaiton due to hypoperfusion /Hemodynamic UA benign No changes Monitor renal panel Avoid nephrotoxins/NSAIDS Increase PO fluid intake Orders: Orders Basic Metabolic Panel 4 Months N18.32 - Chronic kidney disease, stage 3b Coding Level of Care Code Est Pt Level 4 (29415) Diagnoses Stage 3b chronic kidney disease N18.32 Chronic kidney disease stage: stage 3 (moderate) Chronic kidney disease stage 3 subtype: stage 3b (GFR 30-44) Primary hypertension I10 Hypertension type: primary hypertension Multiple sclerosis G35 Osteoarthritis of knee, unspecified laterality, unspecified osteoarthritis type M17.9 Laterality: unspecified laterality Osteoarthritis location: knee Osteoarthritis type: unspecified Neuropathy G62.9 History of depression Z86.59
--- OUTSIDE RECORDS SUMMARY | 2025-07-30 11:30 | XMS_ITS | Clinical Summary ---
Author Organization [facility] Address [address] [place] [address] Care Team Providers Care Tool/Die Maker Name Role Phone MeshaleanderdylonWiliam cuevas Primary Care Provider [phone] Allergies No known active allergies Medications Medication [...] 69 06/03/2024 9:23 AM EDT Temperature 36.2 C (97.2 F) 06/03/2024 9:23 AM EDT Respiratory Rate 18 11/29/2023 11:2 7 AM [...] or Tdap) 11/30/2022 11/30/2012 Influenza Vaccine (#1) 2025 , 09/24/2020, 08/13/2019 Pneumococcal Vaccine Aged Out No long er eligible based on patient's age to complete this topic RSV Ped < 20 months Aged Out No longe r eligible based on patient's age to complete this topic Care Teams Tool/Die Maker Relationship Specialty Start Date End Date Wiliam Ching DO [address] [place] [id number] PCP - General Internal Medicine 09/14/18
--- OUTSIDE RECORDS SUMMARY | 2025-07-30 11:30 | XMS_ITS | Clinical Summary ---
Author Organization [address] [facility] Address [address] [place] [address] Phone Care Team Providers Care Advertising Assistant Name Role Phone Jm Maravilla DO Primary Care Provider [phone] Allergies No known active allergies Medications atorvastatin (LIPITOR) 20 mg tablet Take 1 tablet (20 mg total) by mouth 1 (one) time each day. 04/18/2023 Active buPROPion XL (WELLBUTRIN XL) 150 mg 24 hr tablet Take 1 tablet (150 mg total) by mouth. Active citalopram (CeleXA) 40 mg tablet Take 1 tablet (40 mg total) by mouth 1 (one) time each day. Active gabapentin (NEURONTIN) 600 mg tablet Take 1 tablet (600 mg total) by mouth 2 (two) times a day. Active nortriptyline (PAMELOR) 10 mg capsule Take 2 capsules (20 mg total) by mouth. Active progesterone (PROMETRIUM) 200 mg capsule Take 1 capsule (200 mg total) by mouth. Active tiZANidine (ZANAFLEX) 6 mg capsule Take 1 capsule (6 mg total) by mouth. Active azelaic acid (FINACEA) 15 % gel Apply bid Active spironolactone (ALDACTONE) 100 mg tablet TAKE 1 TABLET DAILY Active losartan (COZAAR) 25 mg tablet Take 1 tablet (25 mg total) by mouth 1 (one) time each day. Active modafiniL (PROVIGIL) 200 mg tabletIndicatio ns:Multiple sclerosis ([facility] V24, [facility] V28) Take 1 tablet (200 mg total) by mouth 1 (one) time each day. Max Daily Amount: 200 mg 30 each 5 03/31/2025 09/27/20 25 Active Active Problems Problem Noted Date Diagnosed Date Class 2 obesity with body ma ss index (BMI) of 35.0 to 35.9 in adult 10/02/2024 Lipoma 01/08/2024 HTN (hypertension) 06/12/2020 Arthritis 12/28/2017 Depression 12/28/2017 Multiple sclerosis ([facility] V24, [facility] V28) Surgical History Surgery Date Site/Laterality Comments EAR RECONSTRUCTION PROCEDURE:EAR RECONSTRUCTION BUNIONECTOMY PROCEDURE:BUNIONECTOMY EXPLORATORY LAPAROTOMY W/ ISATU WEL RESECTION PROCEDURE:EXPLORATORY LAPAROTOMY W/ BOWEL RESECTION HERNIA REPAIR PROCEDURE:HERNIA REPAIR KNEE CARTILAGE SURGERY Left PROCEDURE:KNEE CARTILAGE SURGERY Medical History Medical History Date Comments Hypertension DX:Hypertension Depression DX:Depression MS (multiple sclerosis) ([facility] V24, [facility] V28) DX:MS (multiple sclerosis) ( [facility]) Arthritis DX:Arthritis Bursitis DX:Bursitis Family History [...] Sign Reading Time Taken Comments Blood Pressure 106/72 03/31/2025 10:04 AM EDT Pulse 75 03/31/2025 10:04 AM EDT Temperature 36.2 C (97.2 F) 10/31/2024 1:24 PM EST Respiratory Rate - - Oxygen Saturation 98% 03/31/2025 10:04 AM EDT Inhaled Oxygen Concentration - - Weight 98 kg (216 lb) 03/31/2025 10:04 AM EDT Height 167.6 cm (5' 6 ) 03/31/2025 10:04 AM EDT Body Mass Index 34.86 03/31/2025 10:04 AM EDT Plan of Treatment Health Maintenance Due Date Last Done Comments Hepatitis B Vaccines (1 of 3 - 19+ 3-dose series) 1984 Cervical Cancer Screening: Pap Smear 1986 Pneumococcal Vaccine: 50+ Years (1 of 1 - PCV) 2015 Zoster Vaccines (1 of 2) 2015 HIV Screening 10/22/2022 Hepatitis C Screening 10/22/2022 Medicare Annual Wellness Visit 10/22/2022 Social Influencers of Health Screening 10/22/2022 Depression Screening 11/13/2024 COVID-19 Vaccine ( - season) 2025 Influenza Vaccine (#1) 2025 , 10/01/2021, 08/25/2021, Additional history exists Colorectal [...] Procedure Name Priority Date/Time Associated Diagnosis Comments COMPREHENSIVE METABOLIC PANEL Routine 01/20/2025 1:30 PM EDT HLD (hyperlipidemia) MS (congenital mitral stenosis) Obesity HTN (hypertension) LIPID PANEL WITH REFLEX TO DIRECT LDL Routine 01/20/2025 1:30 PM EDT HLD (hyperlipidemia) MS (congenital mitral stenosis) Obesity HTN (hypertension) SAW SCREENING DIGITAL Routine 08/13/2024 1:16 PM EDT Encounter for screening mammogram for malignant neoplasm of breast FIT-DNA Routine 09/02/2022 from Last 3 Months or Most Recently Relevant to Health Maintenance Results * (ABNORMAL) Lipid panel with reflex to direct LDL (01/20/2025 1:30 PM EDT) Cholesterol 203(H) 0 - 200 mg/dL LAB CHEMISTRY METHOD 01/20/2025 3:45 PM EDT [facility] Triglycerides 80 0 - 150 mg/dL LAB CHEMISTRY METHOD 01/20/2025 3:45 PM EDT [facility] HDL 123 >=40 mg/dL LAB CHEMISTRY METHOD 01/20/2025 3:45 PM EDT [facility] LDL Calculated 64 0 - 100 mg/dL LAB CHEMISTRY METHOD 01/20/2025 3:45 PM EDT [facility] VLDL Cholesterol Reji 16 mg/dL LAB CHEMISTRY METHOD 01/20/2025 3:45 PM EDT [facility] Non HDL Chol. (LDL+VLDL) 80 <145 mg/dL LAB CHEMISTRY METHOD 01/20/2025 3:45 PM EDT [facility] Chol/HDL Ratio 1.7 0.0 - 4.4 LAB CHEMISTRY METHOD 01/20/2025 3:45 PM EDT [facility] Blood Venous blood specimen / Unknown Venipuncture / Unknown 01/20/2025 1:30 PM EDT 01/20/2025 1:30 PM EDT [facility] LAB BLOOD ORDERABLES Final Resul t [facility] [address] [place] [address], [place] [phone] * (ABNORMAL) Comprehensive metabolic panel (01/20/2025 1:30 PM EDT) Sodium 137 133 - 145 mmol/L LAB CHEMISTRY METHOD 01/20/2025 3:45 PM [facility] Potassium 4.0 3.5 - 5.5 mmol/L LAB CHEMISTRY METHOD 01/20/2025 3:45 PM T [facility] Chloride 104 96 - 110 mmol/L LAB CHEMISTRY METHOD 01/20/2025 3:45 PM T [facility] CO2 25 21 - 32 mmol/L LAB CHEMISTRY METHOD 01/20/2025 3:45 PM T [facility] Anion Gap 8 3 - 11 LAB CHEMISTRY METHOD 01/20/2025 3:45 PM EDT [facility] Glucose 79 70 - 100 mg/dL LAB CHEMISTRY METHOD 01/20/2025 3:45 PM [facility] BUN 35(H) 5 - 25 mg/dL LAB CHEMISTRY METHOD 01/20/2025 3:45 PM T [facility] Creatinine 1.37(H) 0.50 - 1.10 mg/dL LAB CHEMISTRY METHOD 01/20/2025 3:45 PM T [facility] eGFR 45(L) >=60 mL/min/1. 73m2 LAB CHEMISTRY METHOD 01/20/2025 3:45 PM EDT [facility] Comment:Calculation based on the Chronic Kidney Disease Epidemiology Collaboration (CKD-EPI) equation refit without adjustment for race. BUN/Creatinine Ratio 25.5 LAB CHEMISTRY METHOD 01/20/2025 3:45 PM EDT [facility] Calcium 9.3 8.5 - 10.5 mg/dL LAB CHEMISTRY METHOD 01/20/2025 3:45 PM EDT [facility] AST (SGOT) 22 10 - 42 unit/L LAB CHEMISTRY METHOD 01/20/2025 3:45 PM EDT [facility] ALT (SGPT) 34 10 - 60 unit/L LAB CHEMISTRY METHOD 01/20/2025 3:45 PM EDT [facility] Alkaline Phosphatase 92 42 - 121 unit/L LAB CHEMISTRY METHOD 01/20/2025 3:45 PM EDT [facility] Total Protein 7.0 6.0 - 8.0 g/dL LAB CHEMISTRY METHOD 01/20/2025 3:45 PM EDT [facility] Albumin 3.8 3.2 - 5.0 g/dL LAB CHEMISTRY METHOD 01/20/2025 3:45 PM EDT [facility] Total Bilirubin 0.5 0.0 - 1.4 mg/dL LAB CHEMISTRY METHOD 01/20/2025 3:45 PM EDT [facility] Blood Venous blood specimen / Unknown Venipuncture / Unknown 01/20/2025 1:30 PM EDT 01/20/2025 1:30 PM EDT [facility] LAB BLOOD ORDERABLES Final Resul t [facility] [address] [place] [address], * SAW SCREENING DIGITAL (08/13/2024 1:16 PM EDT) Anatomical Region Laterality Modality Mammography 08/12/2024 1:05 PM EDT Narrative 08/13/2024 1:16 PM EDT [facility] Diagnostic Imaging Department [address] [place] [address] Patient: ANABEL TURPIN /Age/Sex: 1965 - 58 - F Unit#: [id number] Location/Status: [facility] CLI Mnemonic/Ordering Site: [facility] Ordering Physician: JM MARAVILLA MD [facility] Screening Digital - 08/12/24 - 1322 Report Status:Signed EXAM: [facility] Screening Digital EXAM DATE AND TIME: 08/12/2024 1:23 PM HISTORY: Screening. COMPARISON: 02/07/23, 11/15/21, 11/08/21 TECHNIQUE: Bilateral digital breast tomosynthesis was performed in the CC and MLO projections. Computer aided detection with EventVue 3D 3.1 was employed. TISSUE DENSITY: b. There are scattered areas of fibroglandular density. FINDINGS: No suspicious masses, grouped microcalcifications, or areas of architectural distortion are seen. The skin and vascularity are unremarkable. IMPRESSION: Stable mammographic appearance of the breasts. No evidence of malignancy is seen. A negative mammogram in the presence of a clinically suspicious palpable abnormality does not preclude the possibility of malignancy or alter the indications for biopsy. BI-RADS: Category 1: Negative RECOMMENDATION(S): 1: Routine screening mammogram BILATERAL in 1 year. Mammogram performed at [facility] at [address] [address] Dictating Physician: RENNY TORRES MD Electronically Signed by: RENNY TORRES MD Dic Date/Time: 08/13/24 131 Sign date/Time: 08/13/24 1316 Procedure Note Renny Torres MD - 09/10/2024 [facility] Diagnostic Imaging Department [address] [place] [id number] Patient: ANABEL TURPIN Scotty /Age/Sex: 1965 - 58 - F Unit#: [id number] Location/Status: [facility] CLI Mnemonic/Ordering Site: [facility] Ordering Physician: JM MARAVILLA MD [facility] Screening Digital - 08/12/24 - 1322 Report Status:Signed EXAM: [facility] Screening Digital EXAM DATE AND TIME: 08/12/2024 1:23 PM HISTORY: Screening. COMPARISON: 02/07/23, 11/15/21, 11/08/21 TECHNIQUE: Bilateral digital breast tomosynthesis was performed in the CCand MLO projections. Computer aided detection with EventVue 3D 3.1was employed. TISSUE DENSITY: b. There [...] Mammogram performed at [facility] at [address] [address] Dictating Physician: RENNY TORRES MD Electronically Signed by: RENNY TORRES MD Dic Date/Time: 08/13/24 1316 Sign date/Time: 08/13/24 1316 Jm Maravilla DO IMG BI PROCEDURES Final Resul t * FIT-DNA (Cologuard) (09/02/2022) Pathologist [facility] Colorectal Cancer Screening: FIT-DNA (Cologuard) abstracted ,normal Historical Provider HEALTH MAINTENANCE Final Result from Last 3 Months or Most Recently Relevant to Health Maintenance Insurance [employer] - [place] MEDICARE ADVANTAGE Care Teams Advertising Assistant Relationship Specialty Start Date End Date Jm Maravilla DO [address] [place] [id number] PCP - General 01/27/09
== END 2025-07-30 10:12 | disposition home or self-care (01) ==
LOC: HO.HKAS 09:41
PROVIDERS: PCP Internal Medicine; Visit Provider Internal Medicine Hypertension Specialist
DX: N18.32 Chronic kidney disease, stage 3b (principal); I10 Essential (primary) hypertension; G35 Multiple sclerosis; M17.9 Osteoarthritis of knee, unspecified; G62.9 Polyneuropathy, unspecified; Z86.59 Personal history of other mental and behavioral disorders
CPT/HCPCS: 99214